=== PATIENT | female | born 1950 | race Caucasian/White ===

== ENCOUNTER 2017-07-04 12:47 | Inpatient (IN) ==
[2017-07-04] MEDS ORDERED: PIPERACILLIN/TAZOBACTAM 3,375 MG in SODIUM CHLORIDE 0.9% 100 ML IV STA (13:44)
[2017-07-04] MEDS ORDERED: ACETAMINOPHEN 325 MG TABLET PO PRN (13:45)
[2017-07-04] MEDS ORDERED: ONDANSETRON 4 MG/2 ML VIAL IV PRN (13:45)
[2017-07-04 13:49] LABS: Basophils % 0.2 % (0.0-0.8); Hematocrit 48.4 VOL% (35.7-47.0); Hemoglobin 16.4 GM/DL (12.0-16.0); Immature Granulocytes % 0.5 %; Immature Granulocytes Absolute 0.06 #; Lymphocytes # 0.4 10*3/uL (1.4-4.0); Lymphocytes % 3.6 % (21.3-54.2); Mean Corpuscular HGB Conc 33.9 GM/DL (32-36); Mean Corpuscular Hemoglobin 31 PG (27-34); Mean Platelet Volume 9.6 FL (9.6-12.0); Monocytes # 0.6 10*3/uL (0.11-0.8); Monocytes % 4.9 % (1.7-12.7); Neutrophils # 10.2 10*3/uL (1.4-7.4); Neutrophils % 90.8 % (38.7-73.9); Platelet Count 346 T/CUMM (130-400); Red Blood Count 5.32 MC/CUMM (3.8-5.5); Red Cell Distribution Width 13.2 % (9.3-17.3); White Blood Count 11.3 T/CUMM (4-12)
[2017-07-04] MEDS ORDERED: PIPERACILLIN/TAZOBACTAM 3,375 MG VIAL IV ONE (13:50)
[2017-07-04 13:58] LABS: Apearance,Urine CLEAR (Clear); Bilirubin,Urine Negative (Negative); Blood, Urine Moderate mg/dL (Negative); Glucose,Urine (UA) Negative (Negative); Hyaline Casts,Urine 1 /LPF (0-3); Ketones,Urine Negative (Negative); Mucus,Urine Occasional /LPF (Occasional); Nitrite,Urine Negative (Negative); Protein,Urine 30 MG/DL; RBC,Urine 27 /HPF (0-4); Squamous Epithelial Cell,Urine Occasional /HPF (0-10); Urine Color Amber (Yellow); Urine Specific Gravity 1.016 (1.001-1.035); Urine Urobilinogen < 2.0 EU/DL (0.2-1.0); WBC,Urine 2 /HPF (0-6)
[2017-07-04] MEDS ORDERED: DEXTROSE 5% NACL 0.45% 1,000 ML IV SCH (14:00)
[2017-07-04 14:10] LABS: Hypochromasia 1+
[2017-07-04 14:11] LABS: Bilirubin,Total 1.7 MG/DL (0.2-1.0); Calcium 8.5 MG/DL (8.5-10.1); Potassium 3.7 MMOL/L (3.5-5.1); Total Protein 6.4 G/DL (6.4-8.3)
[2017-07-04 14:27] LABS: Lactic Acid 3.7 MMOL/L (0.4-2.0)
[2017-07-04] MEDS ORDERED: SEVOFLURANE 1 UNIT/15 MINUTE INH ONE (16:36)
[2017-07-04] MEDS ORDERED: VECURONIUM 10 MG VIAL IV ONE (16:37)
[2017-07-04] MEDS ORDERED: ROCURONIUM 100 MG/10 ML VIAL IV ONE (16:37)
[2017-07-04] MEDS ORDERED: PHENYLEPHRINE 10 MG/1 ML VIAL IV ONE (16:37)
[2017-07-04] MEDS ORDERED: ONDANSETRON 4 MG/2 ML VIAL ONE (16:37)
[2017-07-04] MEDS ORDERED: SODIUM CHLORIDE 0.9% 250 ML IV ONE (16:37)
[2017-07-04] MEDS ORDERED: LACTATED RINGERS 1,000 ML IV ONE ×2 (16:37→18:53)
[2017-07-04] MEDS ORDERED: SODIUM CHLORIDE 0.9% 1,000 ML IV ONE ×2 (16:37→22:49)
[2017-07-04] MEDS ORDERED: MIDAZOLAM 2 MG/2 ML VIAL ONE (16:37)
[2017-07-04] MEDS ORDERED: SUCCINYLCHOLINE 200 MG/10 ML VIAL ONE (16:37)
[2017-07-04] MEDS ORDERED: fentaNYL 100 MCG/2 ML VIAL ONE (16:37)
[2017-07-04 17:37] LABS: ABG Base Excess -3.8 MMOL/L (-2.5-2.5); ABG HCO3 21.4 MMOL/L (20-26); ABG Oxygen Saturation 96.5 % (95-100); ABG PCO2 39.6 MM HG (35-48); ABG PO2 96.7 MM HG (80-95); ABG TCO2 22.6 MMOL/L (23-27); Allen Test Positive; Pt O2 Delivery Device Ventilator
[2017-07-04] MEDS: PIPERACILLIN/TAZOBACTAM 3,375 MG in SODIUM CHLORIDE 0.9% 100 ML IV SCH ×2 (17:38→22:29)
[2017-07-04] MEDS: LACTATED RINGERS 1,000 ML IV SCH (18:12)
[2017-07-04] MEDS ORDERED: hydrALAZINE 20 MG/1 ML VIAL IV PRN (18:17)
[2017-07-04 18:27] LABS: Lactic Acid 4.5 MMOL/L (0.4-2.0)
[2017-07-04] MEDS: HYDROmorphone 2 MG/1 ML VIAL IV PRN ×2 (18:45→22:10)
[2017-07-04] MEDS ORDERED: NOREPINEPHRINE 4 MG/4 ML VIAL IV ONE (18:52)
[2017-07-04] MEDS: PANTOPRAZOLE 40 MG VIAL IV SCH (18:59)
[2017-07-04 19:30] LABS: Hematocrit 42.7 VOL% (35.7-47.0); Hemoglobin 14.6 GM/DL (12.0-16.0)
[2017-07-04] MEDS: NOREPINEPHRINE 8 MG in SODIUM CHLORIDE 0.9% 242 ML IV SCH (19:52)
[2017-07-04] MEDS: PROPOFOL 1,000 MG/100 ML BOTTLE IV SCH (21:33)
[2017-07-04] MEDS ORDERED: ALBUMIN 25% 12.5 GM in PREMIX 1 EACH IV ONE (23:00)
[2017-07-05] MEDS: LACTATED RINGERS 1,000 ML IV SCH ×5 (03:44→20:30)
[2017-07-05 04:05] LABS: ABG Base Excess -1.1 MMOL/L (-2.5-2.5); ABG HCO3 23.5 MMOL/L (20-26); ABG Oxygen Saturation 99.4 % (95-100); ABG PH 7.437 (7.35-7.45); ABG TCO2 19.1 MMOL/L (23-27); Allen Test Positive; Pt O2 Delivery Device Ventilator
[2017-07-05 04:57] LABS: Basophils % 0.3 % (0.0-0.8); Hematocrit 42.3 VOL% (35.7-47.0); Immature Granulocytes % 0.9 %; Immature Granulocytes Absolute 0.08 #; Lymphocytes # 0.5 10*3/uL (1.4-4.0); Lymphocytes % 6.1 % (21.3-54.2); Mean Corpuscular HGB Conc 33.1 GM/DL (32-36); Mean Corpuscular Hemoglobin 31 PG (27-34); Mean Corpuscular Volume 92.8 FL (87-102); Monocytes # 0.4 10*3/uL (0.11-0.8); Monocytes % 4.6 % (1.7-12.7); Neutrophils # 7.6 10*3/uL (1.4-7.4); Neutrophils % 88.1 % (38.7-73.9); Platelet Count 235 T/CUMM (130-400); Red Blood Count 4.56 MC/CUMM (3.8-5.5); Red Cell Distribution Width 13.2 % (9.3-17.3); White Blood Count 8.6 T/CUMM (4-12)
[2017-07-05] MEDS: LEVOTHYROXINE 75 MCG TABLET PO SCH (05:10)
[2017-07-05] MEDS: PIPERACILLIN/TAZOBACTAM 3,375 MG in SODIUM CHLORIDE 0.9% 100 ML IV SCH ×3 (05:16→22:36)
[2017-07-05 05:18] LABS: Lactic Acid 2.5 MMOL/L (0.4-2.0)
[2017-07-05 05:28] LABS: Albumin 2.3 G/DL (3.4-5.0); Bilirubin,Total 2.9 MG/DL (0.2-1.0); Calcium 7.4 MG/DL (8.5-10.1); Osmolality,Calculated 287.3 MOS/KG (273-304); Potassium 3.6 MMOL/L (3.5-5.1); Total Protein 4.6 G/DL (6.4-8.3)
[2017-07-05 05:33] LABS: Band Neutrophils 14 % (0-10); Lymphocytes 6 % (20-55); Metamyelocytes 4 %; Microcytosis Slight; Myelocytes 1 %; Segmented Neutrophils 72 % (50-85); Total Cells Counted 100
[2017-07-05 05:34] LABS: Platelet Estimate Normal
[2017-07-05] MEDS: PANTOPRAZOLE 40 MG VIAL IV SCH (09:18)
[2017-07-05] MEDS: PROPOFOL 1,000 MG/100 ML BOTTLE IV SCH (10:02)
[2017-07-05] MEDS: HYDROmorphone 2 MG/1 ML VIAL IV PRN ×2 (10:29→20:45)
[2017-07-05] MEDS ORDERED: BUPIVACAINE 0.25% 50 ML VIAL ONE (13:23)
[2017-07-05] MEDS ORDERED: fentaNYL 100 MCG/2 ML VIAL ONE (15:34)
[2017-07-05] MEDS ORDERED: MIDAZOLAM 2 MG/2 ML VIAL ONE (15:34)
[2017-07-05] MEDS ORDERED: ROCURONIUM 100 MG/10 ML VIAL IV ONE ×2 (15:35→15:39)
[2017-07-05] MEDS ORDERED: ONDANSETRON 4 MG/2 ML VIAL ONE (15:36)
[2017-07-05] MEDS ORDERED: DEXAMETHASONE 10 MG/1 ML VIAL ONE (15:36)
[2017-07-05] MEDS ORDERED: PHENYLEPHRINE 10 MG/1 ML VIAL IV ONE (15:37)
[2017-07-05] MEDS ORDERED: SODIUM CHLORIDE 0.9% 250 ML IV ONE (15:37)
[2017-07-06] MEDS: LACTATED RINGERS 1,000 ML IV SCH ×4 (02:28→17:53)
[2017-07-06 03:39] LABS: ABG Base Excess 1.9 MMOL/L (-2.5-2.5); ABG HCO3 26.1 MMOL/L (20-26); ABG Oxygen Saturation 99.5 % (95-100); ABG PCO2 37.1 MM HG (35-48); ABG PH 7.449 (7.35-7.45); ABG TCO2 22.8 MMOL/L (23-27)
[2017-07-06] MEDS: PROPOFOL 1,000 MG/100 ML BOTTLE IV SCH ×3 (04:35→21:24)
[2017-07-06] MEDS: NOREPINEPHRINE 8 MG in SODIUM CHLORIDE 0.9% 242 ML IV SCH ×2 (05:42→20:04)
[2017-07-06] MEDS: LEVOTHYROXINE 75 MCG TABLET PO SCH (05:52)
[2017-07-06 06:21] LABS: Hematocrit 34.6 VOL% (35.7-47.0); Immature Granulocytes % 1.5 %; Immature Granulocytes Absolute 0.09 #; Lymphocytes # 0.4 10*3/uL (1.4-4.0); Lymphocytes % 6.2 % (21.3-54.2); Mean Corpuscular HGB Conc 33.8 GM/DL (32-36); Mean Corpuscular Hemoglobin 31 PG (27-34); Mean Platelet Volume 10.2 FL (9.6-12.0); Monocytes # 0.3 10*3/uL (0.11-0.8); Monocytes % 4.4 % (1.7-12.7); Neutrophils # 5.3 10*3/uL (1.4-7.4); Neutrophils % 87.9 % (38.7-73.9); Red Blood Count 3.76 MC/CUMM (3.8-5.5); Red Cell Distribution Width 13.5 % (9.3-17.3)
[2017-07-06] MEDS: PIPERACILLIN/TAZOBACTAM 3,375 MG in SODIUM CHLORIDE 0.9% 100 ML IV SCH ×3 (06:32→22:24)
[2017-07-06 06:45] LABS: Alanine Aminotransferase < 9 U/L (13-56); Albumin 1.7 G/DL (3.4-5.0); Alkaline Phosphatase 53 U/L (45-117); Aspartate Amino Transferase 14 U/L (0-37); Bilirubin,Indirect 0.5 MG/DL (0.0-1.0); Blood Urea Nitrogen 17 MG/DL (7-18); Calcium 7.5 MG/DL (8.5-10.1); Glucose 200 MG/DL (74-106); Osmolality,Calculated 290.1 MOS/KG (273-304); Potassium 3.5 MMOL/L (3.5-5.1); Sodium 142 MMOL/L (136-145); Total Protein 4.2 G/DL (6.4-8.3)
[2017-07-06 07:02] LABS: Hemoglobin 11.7 GM/DL (12.0-16.0); Platelet Count 165 T/CUMM (130-400)
[2017-07-06 07:52] LABS: Band Neutrophils 4 % (0-10); Lymphocytes 9 % (20-55); Microcytosis Slight; Platelet Estimate Adequate; Segmented Neutrophils 81 % (50-85); Total Cells Counted 100
[2017-07-06] MEDS: PANTOPRAZOLE 40 MG VIAL IV SCH (09:23)
[2017-07-06] MEDS: HYDROmorphone 2 MG/1 ML VIAL IV PRN ×2 (12:24→17:54)
[2017-07-07] MEDS: HYDROmorphone 2 MG/1 ML VIAL IV PRN ×2 (00:50→11:46)
[2017-07-07] MEDS: LACTATED RINGERS 1,000 ML IV SCH ×3 (02:01→18:44)
[2017-07-07 03:41] LABS: ABG Base Excess 1.2 MMOL/L (-2.5-2.5); ABG HCO3 25.5 MMOL/L (20-26); ABG PCO2 39.4 MM HG (35-48); ABG TCO2 22.8 MMOL/L (23-27)
[2017-07-07 05:42] LABS: Basophils % 0.1 % (0.0-0.8); Hematocrit 33.3 VOL% (35.7-47.0); Hemoglobin 11.2 GM/DL (12.0-16.0); Immature Granulocytes % 2.8 %; Immature Granulocytes Absolute 0.19 #; Lymphocytes # 0.5 10*3/uL (1.4-4.0); Lymphocytes % 6.6 % (21.3-54.2); Mean Corpuscular HGB Conc 33.6 GM/DL (32-36); Mean Corpuscular Hemoglobin 31 PG (27-34); Mean Corpuscular Volume 93.3 FL (87-102); Mean Platelet Volume 10.4 FL (9.6-12.0); Monocytes # 0.4 10*3/uL (0.11-0.8); Monocytes % 6.4 % (1.7-12.7); Neutrophils # 5.8 10*3/uL (1.4-7.4); Neutrophils % 84.1 % (38.7-73.9); Platelet Count 171 T/CUMM (130-400); Red Blood Count 3.57 MC/CUMM (3.8-5.5); Red Cell Distribution Width 13.6 % (9.3-17.3); White Blood Count 6.9 T/CUMM (4-12)
[2017-07-07] MEDS: LEVOTHYROXINE 75 MCG TABLET PO SCH (06:14)
[2017-07-07] MEDS: PIPERACILLIN/TAZOBACTAM 3,375 MG in SODIUM CHLORIDE 0.9% 100 ML IV SCH ×3 (06:14→22:46)
[2017-07-07 06:15] LABS: Band Neutrophils 3 % (0-10); Lymphocytes 17 % (20-55); Macrocytosis 1+; Platelet Estimate Normal; Segmented Neutrophils 77 % (50-85); Total Cells Counted 100
[2017-07-07 06:23] LABS: Alanine Aminotransferase < 6 U/L (13-56); Albumin 1.7 G/DL (3.4-5.0); Alkaline Phosphatase 56 U/L (45-117); Aspartate Amino Transferase 8 U/L (0-37); Bilirubin,Indirect 0.8 MG/DL (0.0-1.0); Blood Urea Nitrogen 21 MG/DL (7-18); Calcium 7.6 MG/DL (8.5-10.1); Glucose 164 MG/DL (74-106); Potassium 3.6 MMOL/L (3.5-5.1); Sodium 143 MMOL/L (136-145); Total Protein 4.2 G/DL (6.4-8.3)
[2017-07-07] MEDS: PANTOPRAZOLE 40 MG VIAL IV SCH (08:13)
[2017-07-07] MEDS ORDERED: SEVOFLURANE 1 UNIT/15 MINUTE INH ONE (11:18)
[2017-07-07] MEDS ORDERED: fentaNYL 100 MCG/2 ML VIAL ONE (11:19)
[2017-07-07] MEDS ORDERED: MIDAZOLAM 10 MG/2 ML VIAL ONE (11:19)
[2017-07-07] MEDS ORDERED: ROCURONIUM 100 MG/10 ML VIAL IV ONE (11:19)
[2017-07-07] MEDS: PROPOFOL 1,000 MG/100 ML BOTTLE IV SCH (15:49)
[2017-07-07] MEDS: NOREPINEPHRINE 8 MG in SODIUM CHLORIDE 0.9% 242 ML IV SCH (19:08)
[2017-07-08] MEDS: PROPOFOL 1,000 MG/100 ML BOTTLE IV SCH ×3 (00:42→21:17)
[2017-07-08 04:12] LABS: ABG Base Excess 2.2 MMOL/L (-2.5-2.5); ABG HCO3 26.3 MMOL/L (20-26); ABG Oxygen Saturation 95.9 % (95-100); ABG PCO2 38.7 MM HG (35-48); ABG PH 7.439 (7.35-7.45); ABG PO2 79.1 MM HG (80-95); ABG TCO2 21.5 MMOL/L (23-27); Allen Test Positive; Pt O2 Delivery Device Ventilator
[2017-07-08] MEDS: LACTATED RINGERS 1,000 ML IV SCH ×3 (04:25→17:30)
[2017-07-08 06:02] LABS: Basophils % 0.2 % (0.0-0.8); Eosinophils % 0.1 % (0.00-10.9); Hematocrit 35.9 VOL% (35.7-47.0); Hemoglobin 11.5 GM/DL (12.0-16.0); Immature Granulocytes % 2.2 %; Lymphocytes # 0.6 10*3/uL (1.4-4.0); Lymphocytes % 5.9 % (21.3-54.2); Mean Corpuscular Hemoglobin 31 PG (27-34); Mean Corpuscular Volume 95.5 FL (87-102); Monocytes # 0.6 10*3/uL (0.11-0.8); Monocytes % 6.4 % (1.7-12.7); Neutrophils # 7.9 10*3/uL (1.4-7.4); Neutrophils % 85.2 % (38.7-73.9); Platelet Count 194 T/CUMM (130-400); Red Blood Count 3.76 MC/CUMM (3.8-5.5); Red Cell Distribution Width 13.5 % (9.3-17.3); White Blood Count 9.3 T/CUMM (4-12)
[2017-07-08 06:30] LABS: Calcium 7.6 MG/DL (8.5-10.1); Osmolality,Calculated 289.8 MOS/KG (273-304); Potassium 3.5 MMOL/L (3.5-5.1)
[2017-07-08 06:39] LABS: Albumin 1.6 G/DL (3.4-5.0); Bilirubin,Direct 0.47 MG/DL (0.0-0.20); Bilirubin,Indirect 0.3 MG/DL (0.0-1.0); Bilirubin,Total 0.8 MG/DL (0.2-1.0); Total Protein 4.3 G/DL (6.4-8.3)
[2017-07-08] MEDS: LEVOTHYROXINE 75 MCG TABLET PO SCH (06:58)
[2017-07-08] MEDS: PIPERACILLIN/TAZOBACTAM 3,375 MG in SODIUM CHLORIDE 0.9% 100 ML IV SCH ×3 (06:58→22:15)
[2017-07-08 07:45] LABS: Hypochromasia 1+; Platelet Estimate Adequate
[2017-07-08] MEDS: PANTOPRAZOLE 40 MG VIAL IV SCH (08:09)
[2017-07-08] MEDS: FUROSEMIDE 40 MG/4 ML VIAL IV SCH (08:09)
[2017-07-08] MEDS ORDERED: GLUCAGON 1 MG VIAL IM PRN (09:25)
[2017-07-08] MEDS ORDERED: DEXTROSE 50% 25 GM/50 ML VIAL IV PRN (09:25)
[2017-07-08 12:16] LABS: ABG Base Excess 3.9 MMOL/L (-2.5-2.5); ABG HCO3 27.9 MMOL/L (20-26); ABG Oxygen Saturation 95.6 % (95-100); ABG PCO2 37.6 MM HG (35-48); ABG PH 7.473 (7.35-7.45); ABG PO2 73.3 MM HG (80-95); ABG TCO2 24.2 MMOL/L (23-27); Allen Test Positive; Pt O2 Delivery Device Ventilator
[2017-07-08] MEDS: INSULIN REGULAR 100 UNIT/ML SUBCUT SCH ×3 (12:24→23:56)
[2017-07-09 03:45] LABS: ABG Base Excess 3.6 MMOL/L (-2.5-2.5); ABG HCO3 27.5 MMOL/L (20-26); ABG Oxygen Saturation 97.4 % (95-100); ABG PCO2 39.4 MM HG (35-48); ABG PH 7.462 (7.35-7.45); ABG PO2 97.7 MM HG (80-95); ABG TCO2 28.7 MMOL/L (23-27); Allen Test Positive; Pt O2 Delivery Device Ventilator
[2017-07-09] MEDS: PIPERACILLIN/TAZOBACTAM 3,375 MG in SODIUM CHLORIDE 0.9% 100 ML IV SCH ×3 (05:31→23:15)
[2017-07-09] MEDS: LACTATED RINGERS 1,000 ML IV SCH ×2 (05:34→13:07)
[2017-07-09 05:38] LABS: Basophils % 0.4 % (0.0-0.8); Eosinophils % 0.1 % (0.00-10.9); Hematocrit 33.3 VOL% (35.7-47.0); Hemoglobin 10.5 GM/DL (12.0-16.0); Immature Granulocytes % 4.5 %; Immature Granulocytes Absolute 0.48 #; Lymphocytes # 0.6 10*3/uL (1.4-4.0); Lymphocytes % 5.8 % (21.3-54.2); Mean Corpuscular HGB Conc 31.5 GM/DL (32-36); Mean Corpuscular Hemoglobin 30 PG (27-34); Mean Corpuscular Volume 96.2 FL (87-102); Mean Platelet Volume 10.1 FL (9.6-12.0); Monocytes # 0.8 10*3/uL (0.11-0.8); Monocytes % 7.8 % (1.7-12.7); Neutrophils # 8.7 10*3/uL (1.4-7.4); Neutrophils % 81.4 % (38.7-73.9); Platelet Count 175 T/CUMM (130-400); Red Blood Count 3.46 MC/CUMM (3.8-5.5); Red Cell Distribution Width 13.3 % (9.3-17.3); White Blood Count 10.6 T/CUMM (4-12)
[2017-07-09] MEDS: LEVOTHYROXINE 75 MCG TABLET PO SCH (05:42)
[2017-07-09 06:06] LABS: Calcium 7.1 MG/DL (8.5-10.1); Osmolality,Calculated 295.3 MOS/KG (273-304); Potassium 2.9 MMOL/L (3.5-5.1)
[2017-07-09] MEDS: INSULIN REGULAR 100 UNIT/ML SUBCUT SCH ×3 (06:24→18:24)
[2017-07-09 06:41] LABS: Band Neutrophils 3 % (0-10); Lymphocytes 4 % (20-55); Segmented Neutrophils 87 % (50-85); Total Cells Counted 100
[2017-07-09 06:42] LABS: Hypochromasia 1+; Platelet Estimate Adequate
[2017-07-09] MEDS ORDERED: POTASSIUM CHLORIDE RIDER 20 MEQ in PREMIX 1 EACH IV PRN (06:47)
[2017-07-09] MEDS ORDERED: POTASSIUM CHLORIDE INJ 50 MEQ in SODIUM CHLORIDE 0.9% 500 ML IV ONE (08:30)
[2017-07-09] MEDS: PANTOPRAZOLE 40 MG VIAL IV SCH (08:52)
[2017-07-09] MEDS: SPIRONOLACTONE 25 MG TABLET PO SCH ×2 (08:52→22:53)
[2017-07-09] MEDS: FUROSEMIDE 40 MG/4 ML VIAL IV SCH (08:52)
[2017-07-09] MEDS: HALOPERIDOL 5 MG/ML AMP IV SCH ×2 (08:52→22:53)
[2017-07-09] MEDS: PROPOFOL 1,000 MG/100 ML BOTTLE IV SCH ×3 (09:01→23:52)
[2017-07-09] MEDS: ENOXAPARIN 40 MG/0.4 ML SYRINGE SUBCUT SCH (09:46)
[2017-07-09] MEDS: POTASSIUM CHLORIDE RIDER 10 MEQ in PREMIX 1 EACH IV PRN ×2 (20:31→23:16)
[2017-07-09] MEDS: HYDROmorphone 2 MG/1 ML VIAL IV PRN (22:55)
[2017-07-10] MEDS: INSULIN REGULAR 100 UNIT/ML SUBCUT SCH ×4 (00:32→17:37)
[2017-07-10] MEDS: PROPOFOL 1,000 MG/100 ML BOTTLE IV SCH ×3 (04:01→16:35)
[2017-07-10] MEDS: LACTATED RINGERS 1,000 ML IV SCH ×2 (04:02→08:40)
[2017-07-10 04:15] LABS: ABG Base Excess 2.3 MMOL/L (-2.5-2.5); ABG HCO3 26.3 MMOL/L (20-26); ABG Oxygen Saturation 96.2 % (95-100); ABG PCO2 32.4 MM HG (35-48); ABG PO2 77.8 MM HG (80-95); ABG TCO2 20.3 MMOL/L (23-27); Allen Test Positive; Pt O2 Delivery Device Ventilator
[2017-07-10] MEDS: PIPERACILLIN/TAZOBACTAM 3,375 MG in SODIUM CHLORIDE 0.9% 100 ML IV SCH ×3 (05:45→22:53)
[2017-07-10 05:57] LABS: Calcium 7.2 MG/DL (8.5-10.1); Osmolality,Calculated 291.6 MOS/KG (273-304)
[2017-07-10] MEDS: LEVOTHYROXINE 75 MCG TABLET PO SCH (06:11)
[2017-07-10] MEDS: HALOPERIDOL 5 MG/ML AMP IV SCH ×2 (09:48→21:18)
[2017-07-10] MEDS: FUROSEMIDE 40 MG/4 ML VIAL IV SCH (09:48)
[2017-07-10] MEDS: PANTOPRAZOLE 40 MG VIAL IV SCH (09:48)
[2017-07-10] MEDS: ENOXAPARIN 40 MG/0.4 ML SYRINGE SUBCUT SCH (09:49)
[2017-07-10] MEDS: SPIRONOLACTONE 25 MG TABLET PO SCH ×2 (09:49→21:15)
[2017-07-10] MEDS: VANCOMYCIN INJ 1,500 MG in SODIUM CHLORIDE 0.9% 500 ML IV SCH ×2 (09:53→19:58)
[2017-07-11] MEDS: INSULIN REGULAR 100 UNIT/ML SUBCUT SCH ×4 (00:14→17:36)
[2017-07-11] MEDS: PROPOFOL 1,000 MG/100 ML BOTTLE IV SCH (03:09)
[2017-07-11 03:49] LABS: ABG Base Excess 5.6 MMOL/L (-2.5-2.5); ABG PCO2 37.6 MM HG (35-48); ABG PH 7.505 (7.35-7.45); ABG PO2 89.7 MM HG (80-95); ABG TCO2 30.1 MMOL/L (23-27)
[2017-07-11 05:13] LABS: Basophils % 0.3 % (0.0-0.8); Eosinophils % 0.3 % (0.00-10.9); Hematocrit 32.8 VOL% (35.7-47.0); Hemoglobin 10.9 GM/DL (12.0-16.0); Immature Granulocytes % 8.3 %; Immature Granulocytes Absolute 0.87 #; Lymphocytes # 0.9 10*3/uL (1.4-4.0); Lymphocytes % 8.3 % (21.3-54.2); Mean Corpuscular HGB Conc 33.2 GM/DL (32-36); Mean Corpuscular Hemoglobin 31 PG (27-34); Mean Platelet Volume 10.3 FL (9.6-12.0); Monocytes # 0.7 10*3/uL (0.11-0.8); Monocytes % 6.7 % (1.7-12.7); Neutrophils % 76.1 % (38.7-73.9); Platelet Count 221 T/CUMM (130-400); Red Blood Count 3.49 MC/CUMM (3.8-5.5); Red Cell Distribution Width 13.4 % (9.3-17.3); White Blood Count 10.5 T/CUMM (4-12)
[2017-07-11] MEDS: LACTATED RINGERS 1,000 ML IV SCH ×2 (05:24→17:55)
[2017-07-11] MEDS: LEVOTHYROXINE 75 MCG TABLET PO SCH (05:24)
[2017-07-11] MEDS: PIPERACILLIN/TAZOBACTAM 3,375 MG in SODIUM CHLORIDE 0.9% 100 ML IV SCH ×3 (05:25→21:34)
[2017-07-11 05:34] LABS: Calcium 6.9 MG/DL (8.5-10.1); Osmolality,Calculated 295.6 MOS/KG (273-304)
[2017-07-11 05:38] LABS: Prealbumin 13.3 MG/DL (20-40)
[2017-07-11 05:44] LABS: Band Neutrophils 1 % (0-10); Eosinophils 1 % (0-10); Lymphocytes 9 % (20-55); Myelocytes 1 %; Segmented Neutrophils 82 % (50-85); Total Cells Counted 100
[2017-07-11 05:46] LABS: Platelet Estimate Adequate
[2017-07-11 05:48] LABS: Atypical Lymphocytes Few
[2017-07-11 09:09] LABS: ABG Base Excess 4.8 MMOL/L (-2.5-2.5); ABG HCO3 28.7 MMOL/L (20-26); ABG Oxygen Saturation 97.1 % (95-100); ABG PCO2 37.7 MM HG (35-48); ABG PH 7.485 (7.35-7.45); ABG TCO2 25.3 MMOL/L (23-27)
[2017-07-11] MEDS: VANCOMYCIN INJ 1,500 MG in SODIUM CHLORIDE 0.9% 500 ML IV SCH (09:11)
[2017-07-11] MEDS: SPIRONOLACTONE 25 MG TABLET PO SCH ×2 (09:12→21:11)
[2017-07-11] MEDS: POTASSIUM CHLORIDE 20 MEQ/15 ML UDCUP PER TUBE PRN ×4 (09:12→16:17)
[2017-07-11] MEDS: FUROSEMIDE 40 MG/4 ML VIAL IV SCH (09:12)
[2017-07-11] MEDS: ENOXAPARIN 40 MG/0.4 ML SYRINGE SUBCUT SCH (09:13)
[2017-07-11] MEDS: HALOPERIDOL 5 MG/ML AMP IV SCH ×2 (09:13→21:23)
[2017-07-11] MEDS: PANTOPRAZOLE 40 MG VIAL IV SCH (09:13)
[2017-07-11 11:44] LABS: ABG HCO3 28.9 MMOL/L (20-26); ABG PH 7.454 (7.35-7.45); ABG PO2 96.1 MM HG (80-95); ABG TCO2 26.2 MMOL/L (23-27)
[2017-07-11] MEDS: POTASSIUM CHLORIDE 20 MEQ TABLET PO SCH (21:16)
[2017-07-12] MEDS: POTASSIUM CHLORIDE 20 MEQ TABLET PO SCH ×3 (00:58→05:42)
[2017-07-12] MEDS: INSULIN REGULAR 100 UNIT/ML SUBCUT SCH ×4 (00:58→18:12)
[2017-07-12 03:41] LABS: ABG Base Excess 4.2 MMOL/L (-2.5-2.5); ABG HCO3 27.6 MMOL/L (20-26); ABG Oxygen Saturation 97.8 % (95-100); ABG PCO2 37.2 MM HG (35-48); ABG PH 7.489 (7.35-7.45); ABG PO2 100.7 MM HG (80-95); ABG TCO2 28.8 MMOL/L (23-27); Allen Test Positive
[2017-07-12] MEDS: PIPERACILLIN/TAZOBACTAM 3,375 MG in SODIUM CHLORIDE 0.9% 100 ML IV SCH ×3 (05:35→21:10)
[2017-07-12] MEDS: LEVOTHYROXINE 75 MCG TABLET PO SCH (05:42)
[2017-07-12 06:10] LABS: Basophils % 0.2 % (0.0-0.8); Eosinophils # 0.2 10*3/uL (0.0-0.87); Eosinophils % 1.3 % (0.00-10.9); Hematocrit 36.5 VOL% (35.7-47.0); Hemoglobin 11.6 GM/DL (12.0-16.0); Immature Granulocytes % 7.1 %; Lymphocytes # 0.9 10*3/uL (1.4-4.0); Lymphocytes % 6.2 % (21.3-54.2); Mean Corpuscular HGB Conc 31.8 GM/DL (32-36); Mean Corpuscular Hemoglobin 31 PG (27-34); Mean Corpuscular Volume 96.8 FL (87-102); Mean Platelet Volume 10.5 FL (9.6-12.0); Monocytes # 0.8 10*3/uL (0.11-0.8); Monocytes % 5.6 % (1.7-12.7); Neutrophils # 11.2 10*3/uL (1.4-7.4); Neutrophils % 79.6 % (38.7-73.9); Platelet Count 240 T/CUMM (130-400); Red Blood Count 3.77 MC/CUMM (3.8-5.5); Red Cell Distribution Width 13.1 % (9.3-17.3); White Blood Count 14.1 T/CUMM (4-12)
[2017-07-12 06:33] LABS: Eosinophils 2 % (0-10); Hypochromasia 1+; Lymphocytes 9 % (20-55); Metamyelocytes 1 %; Segmented Neutrophils 80 % (50-85); Total Cells Counted 100
[2017-07-12 06:40] LABS: Calcium 7.3 MG/DL (8.5-10.1); Osmolality,Calculated 291.7 MOS/KG (273-304)
[2017-07-12] MEDS: ALBUTEROL/IPRATROPIUM 3 ML NEB RESP TX SCH ×3 (08:27→19:47)
[2017-07-12] MEDS: ENOXAPARIN 40 MG/0.4 ML SYRINGE SUBCUT SCH (08:58)
[2017-07-12] MEDS: SPIRONOLACTONE 25 MG TABLET PO SCH ×2 (08:58→21:07)
[2017-07-12] MEDS: FUROSEMIDE 40 MG/4 ML VIAL IV SCH (08:58)
[2017-07-12] MEDS: PANTOPRAZOLE 40 MG VIAL IV SCH (08:59)
[2017-07-12] MEDS: VANCOMYCIN INJ 1,500 MG in SODIUM CHLORIDE 0.9% 500 ML IV SCH (09:27)
[2017-07-12] MEDS ORDERED: PIPERACILLIN/TAZOBACTAM 3,375 MG VIAL IV ONE (14:42)
[2017-07-12] MEDS: MIRTAZAPINE 15 MG TABLET PO SCH (21:07)
[2017-07-13] MEDS: ALBUTEROL/IPRATROPIUM 3 ML NEB RESP TX SCH ×5 (00:04→20:42)
[2017-07-13] MEDS: INSULIN REGULAR 100 UNIT/ML SUBCUT SCH ×4 (02:05→18:36)
[2017-07-13] MEDS: VANCOMYCIN INJ 1,500 MG in SODIUM CHLORIDE 0.9% 500 ML IV SCH ×3 (02:45→21:50)
[2017-07-13 06:02] LABS: Basophils # 0.1 10*3/uL (0.0-0.2); Basophils % 0.3 % (0.0-0.8); Eosinophils # 0.1 10*3/uL (0.0-0.87); Eosinophils % 0.8 % (0.00-10.9); Hematocrit 32.5 VOL% (35.7-47.0); Immature Granulocytes % 8.7 %; Lymphocytes # 0.9 10*3/uL (1.4-4.0); Lymphocytes % 5.4 % (21.3-54.2); Mean Corpuscular HGB Conc 33.8 GM/DL (32-36); Mean Corpuscular Hemoglobin 32 PG (27-34); Mean Corpuscular Volume 93.1 FL (87-102); Mean Platelet Volume 10.6 FL (9.6-12.0); Monocytes # 0.9 10*3/uL (0.11-0.8); Monocytes % 5.1 % (1.7-12.7); Neutrophils # 13.7 10*3/uL (1.4-7.4); Neutrophils % 79.7 % (38.7-73.9); Platelet Count 258 T/CUMM (130-400); Red Blood Count 3.49 MC/CUMM (3.8-5.5); Red Cell Distribution Width 13.3 % (9.3-17.3); White Blood Count 17.2 T/CUMM (4-12)
[2017-07-13 06:15] LABS: Calcium 7.4 MG/DL (8.5-10.1); Osmolality,Calculated 291.7 MOS/KG (273-304); Potassium 3.2 MMOL/L (3.5-5.1)
[2017-07-13] MEDS: LEVOTHYROXINE 75 MCG TABLET PO SCH (06:28)
[2017-07-13 06:31] LABS: Band Neutrophils 1 % (0-10); Eosinophils 1 % (0-10); Hypochromasia 1+; Lymphocytes 7 % (20-55); Microcytosis Slight; Platelet Estimate Adequate; Segmented Neutrophils 89 % (50-85); Total Cells Counted 100
[2017-07-13] MEDS: PIPERACILLIN/TAZOBACTAM 3,375 MG in SODIUM CHLORIDE 0.9% 100 ML IV SCH ×2 (06:46→14:45)
[2017-07-13] MEDS ORDERED: FUROSEMIDE 40 MG/4 ML VIAL IV ONE (09:41)
[2017-07-13] MEDS: ENOXAPARIN 40 MG/0.4 ML SYRINGE SUBCUT SCH (10:08)
[2017-07-13] MEDS: PANTOPRAZOLE 40 MG TABLET PO SCH (10:08)
[2017-07-13] MEDS: SPIRONOLACTONE 25 MG TABLET PO SCH ×2 (10:08→21:42)
[2017-07-13] MEDS: FUROSEMIDE 40 MG/4 ML VIAL IV SCH ×2 (10:09→21:40)
[2017-07-13] MEDS: POTASSIUM CHLORIDE RIDER 10 MEQ in PREMIX 1 EACH IV PRN ×4 (11:10→17:30)
[2017-07-13] MEDS: MIRTAZAPINE 15 MG TABLET PO SCH (21:41)
[2017-07-13] MEDS: ZINC OXIDE PASTE 113 GM TUBE TOP SCH (21:41)
[2017-07-14] MEDS: ALBUTEROL/IPRATROPIUM 3 ML NEB RESP TX SCH ×4 (00:46→19:57)
[2017-07-14] MEDS: INSULIN REGULAR 100 UNIT/ML SUBCUT SCH ×4 (02:13→17:49)
[2017-07-14] MEDS: PIPERACILLIN/TAZOBACTAM 3,375 MG in SODIUM CHLORIDE 0.9% 100 ML IV SCH ×3 (02:20→17:48)
[2017-07-14] MEDS: POTASSIUM CHLORIDE RIDER 10 MEQ in PREMIX 1 EACH IV PRN (03:00)
[2017-07-14 05:25] LABS: Basophils # 0.1 10*3/uL (0.0-0.2); Basophils % 0.5 % (0.0-0.8); Eosinophils # 0.2 10*3/uL (0.0-0.87); Eosinophils % 1.4 % (0.00-10.9); Hematocrit 34.8 VOL% (35.7-47.0); Hemoglobin 11.4 GM/DL (12.0-16.0); Immature Granulocytes % 7.8 %; Immature Granulocytes Absolute 1.23 #; Lymphocytes # 0.9 10*3/uL (1.4-4.0); Lymphocytes % 5.7 % (21.3-54.2); Mean Corpuscular HGB Conc 32.8 GM/DL (32-36); Mean Corpuscular Hemoglobin 31 PG (27-34); Mean Corpuscular Volume 93.8 FL (87-102); Mean Platelet Volume 10.6 FL (9.6-12.0); Monocytes % 6.5 % (1.7-12.7); Neutrophils # 12.3 10*3/uL (1.4-7.4); Neutrophils % 78.1 % (38.7-73.9); Platelet Count 265 T/CUMM (130-400); Red Blood Count 3.71 MC/CUMM (3.8-5.5); Red Cell Distribution Width 13.6 % (9.3-17.3); White Blood Count 15.7 T/CUMM (4-12)
[2017-07-14 05:55] LABS: Hypochromasia Slight; Lymphocytes 9 % (20-55); Segmented Neutrophils 82 % (50-85); Total Cells Counted 100
[2017-07-14 05:56] LABS: Microcytosis Slight
[2017-07-14 05:58] LABS: Calcium 7.8 MG/DL (8.5-10.1); Osmolality,Calculated 294.6 MOS/KG (273-304); Potassium 3.7 MMOL/L (3.5-5.1)
[2017-07-14] MEDS: LEVOTHYROXINE 75 MCG TABLET PO SCH (06:33)
[2017-07-14] MEDS: ENOXAPARIN 40 MG/0.4 ML SYRINGE SUBCUT SCH (09:24)
[2017-07-14] MEDS: FUROSEMIDE 40 MG/4 ML VIAL IV SCH ×2 (09:24→21:00)
[2017-07-14] MEDS: SPIRONOLACTONE 25 MG TABLET PO SCH ×2 (09:24→21:00)
[2017-07-14] MEDS: PANTOPRAZOLE 40 MG TABLET PO SCH (09:24)
[2017-07-14] MEDS: ZINC OXIDE PASTE 113 GM TUBE TOP SCH ×2 (09:25→21:02)
[2017-07-14] MEDS: VANCOMYCIN INJ 1,500 MG in SODIUM CHLORIDE 0.9% 500 ML IV SCH (14:29)
[2017-07-14] MEDS: MIRTAZAPINE 15 MG TABLET PO SCH (21:00)
[2017-07-15] MEDS: INSULIN REGULAR 100 UNIT/ML SUBCUT SCH ×3 (00:50→12:06)
[2017-07-15] MEDS: ALBUTEROL/IPRATROPIUM 3 ML NEB RESP TX SCH ×3 (01:02→13:45)
[2017-07-15] MEDS: PIPERACILLIN/TAZOBACTAM 3,375 MG in SODIUM CHLORIDE 0.9% 100 ML IV SCH ×2 (02:35→10:12)
[2017-07-15 05:41] LABS: Potassium 3.6 MMOL/L (3.5-5.1)
[2017-07-15] MEDS: LEVOTHYROXINE 75 MCG TABLET PO SCH (06:42)
[2017-07-15] MEDS: SPIRONOLACTONE 25 MG TABLET PO SCH (10:09)
[2017-07-15] MEDS: PANTOPRAZOLE 40 MG TABLET PO SCH (10:09)
[2017-07-15] MEDS: FUROSEMIDE 40 MG/4 ML VIAL IV SCH (10:10)
[2017-07-15] MEDS: ENOXAPARIN 40 MG/0.4 ML SYRINGE SUBCUT SCH (10:12)
[2017-07-15] MEDS: ZINC OXIDE PASTE 113 GM TUBE TOP SCH (10:13)
[2017-07-15] MEDS ORDERED: VANCOMYCIN INJ 1,500 MG in SODIUM CHLORIDE 0.9% 500 ML IV SCH (14:00)
[2017-07-15 14:08] VITALS: BP 132/60
== END 2017-07-15 14:30 | DRG 329 ==
LOC: EDBD → EDUNIT# → N.ED 12:47 → N.ICU 14:00 → N.3E 07-12 17:22
PROVIDERS: ADMIT Surgery; ATTEND Surgery

== ENCOUNTER 2018-02-21 18:44 | Inpatient (IN) ==
[2018-02-21] MEDS ORDERED: POTASSIUM CHLORIDE 20 MEQ TABLET PO ONE (21:15)
[2018-02-21] MEDS ORDERED: PROMETHAZINE 25 MG/1 ML VIAL IM PRN (21:15)
[2018-02-21] MEDS ORDERED: ONDANSETRON 4 MG/2 ML VIAL IV PRN (21:15)
[2018-02-21] MEDS ORDERED: MORPHINE 4 MG/1 ML VIAL IV PRN (21:15)
[2018-02-21] MEDS ORDERED: ALBUTEROL 2.5 MG/3 ML NEB RESP TX PRN (21:15)
[2018-02-21] MEDS ORDERED: PHENYLEPHRINE DRIP 40 MG/250 ML PREMIX IV PRN (21:26)
[2018-02-21] MEDS ORDERED: hydrALAZINE 20 MG/1 ML VIAL IV PRN (21:26)
[2018-02-21] MEDS: SODIUM CHLOR 0.9% KCL 20 MEQ 20 MEQ/1,000 ML BAG IV SCH (21:43)
[2018-02-21] MEDS: PIPERACILLIN/TAZOBACTAM 3,375 MG in SODIUM CHLORIDE 0.9% 100 ML IV SCH (21:54)
[2018-02-21 21:58] LABS: ABG Base Excess 12.4 MMOL/L (-2.5-2.5); ABG HCO3 36.3 MMOL/L (20-26); ABG Oxygen Saturation 98.5 % (95-100); ABG PCO2 43.4 MM HG (35-48); ABG PH 7.536 (7.35-7.45); ABG TCO2 31.5 MMOL/L (23-27)
[2018-02-21 22:38] LABS: Apearance,Urine CLEAR (Clear); Bacteria,Urine Occasional /HPF (Few); Bilirubin,Urine Negative (Negative); Blood, Urine Small mg/dL (Negative); Glucose,Urine (UA) Negative (Negative); Hyaline Casts,Urine 1 /LPF (0-3); Ketones,Urine Negative (Negative); Mucus,Urine Occasional /LPF (Occasional); Nitrite,Urine Negative (Negative); Protein,Urine Negative; RBC,Urine 4 /HPF (0-4); Squamous Epithelial Cell,Urine Occasional /HPF (0-10); Urine Color Yellow (Yellow); Urine Specific Gravity 1.008 (1.001-1.035); Urine Urobilinogen < 2.0 EU/DL (0.2-1.0); WBC,Urine <1 /HPF (0-6)
[2018-02-21] MEDS: AZITHROMYCIN INJ 500 MG in SODIUM CHLORIDE 0.9% 250 ML IV SCH (22:43)
[2018-02-21 23:10] LABS: Lactic Acid 3.1 MMOL/L (0.4-2.0)
[2018-02-21 23:12] LABS: Basophils % 0.2 % (0.0-0.8); Mean Corpuscular Hemoglobin 31 PG (27-34); Red Cell Distribution Width 12.4 % (9.3-17.3)
[2018-02-21] MEDS: ALBUTEROL/IPRATROPIUM 3 ML NEB RESP TX SCH (23:35)
[2018-02-21 23:37] LABS: Basophils # 0.1 10*3/uL (0.0-0.2); Hematocrit 35.1 VOL% (35.7-47.0); Immature Granulocytes % 2.7 %; Immature Granulocytes Absolute 1.31 #; Lymphocytes # 0.5 10*3/uL (1.4-4.0); Mean Corpuscular HGB Conc 38.7 GM/DL (32-36); Mean Corpuscular Volume 78.9 FL (87-102); Mean Platelet Volume 8.7 FL (9.6-12.0); Monocytes # 1.3 10*3/uL (0.11-0.8); Monocytes % 2.6 % (1.7-12.7); Neutrophils % 93.5 % (38.7-73.9); Platelet Count 370 T/CUMM (130-400); Red Blood Count 4.45 MC/CUMM (3.8-5.5)
[2018-02-21 23:41] LABS: Hemoglobin 12.9 GM/DL (12.0-16.0)
[2018-02-21 23:43] LABS: White Blood Count 48.1 T/CUMM (4-12)
[2018-02-22 00:20] LABS: Blood Urea Nitrogen 29 MG/DL (7-18); Calcium 7.9 MG/DL (8.5-10.1)
[2018-02-22 00:21] LABS: Glucose 343 MG/DL (74-106)
[2018-02-22 00:22] LABS: Osmolality,Calculated 246.3 MOS/KG (273-304); Sodium 112 MMOL/L (136-145)
[2018-02-22 00:23] LABS: Bilirubin,Total 1.93 MG/DL (0.2-1.0); Potassium 2.3 MMOL/L (3.5-5.1); Total Protein 5.8 G/DL (6.4-8.3)
[2018-02-22 00:24] LABS: Albumin 2.6 G/DL (3.4-5.0); Osmolality,Calculated 245.3 MOS/KG (273-304)
[2018-02-22 00:25] LABS: Potassium 2.4 MMOL/L (3.5-5.1)
[2018-02-22] MEDS ORDERED: SODIUM CHLORIDE 0.9% 1,000 ML IV ONE (00:31)
[2018-02-22] MEDS ORDERED: VANCOMYCIN INJ 1,000 MG in SODIUM CHLORIDE 0.9% 250 ML IV SCH (01:00)
[2018-02-22] MEDS ORDERED: TOLVAPTAN 15 MG TABLET PO ONE ×2 (01:21→21:50)
[2018-02-22] MEDS ORDERED: SODIUM CHLORIDE 3% INJ 500 ML IV SCH (02:30)
[2018-02-22 03:22] LABS: Basophils # 0.1 10*3/uL (0.0-0.2); Basophils % 0.2 % (0.0-0.8); Eosinophils % 0.1 % (0.00-10.9); Hemoglobin 11.9 GM/DL (12.0-16.0); Immature Granulocytes % 1.8 %; Immature Granulocytes Absolute 0.64 #; Lymphocytes # 0.4 10*3/uL (1.4-4.0); Mean Corpuscular HGB Conc 39.5 GM/DL (32-36); Mean Corpuscular Hemoglobin 31 PG (27-34); Mean Corpuscular Volume 79.4 FL (87-102); Mean Platelet Volume 10.2 FL (9.6-12.0); Monocytes # 0.9 10*3/uL (0.11-0.8); Monocytes % 2.4 % (1.7-12.7); NRBC # 0.04 10*3/uL; Neutrophils # 33.7 10*3/uL (1.4-7.4); Neutrophils % 94.5 % (38.7-73.9); Platelet Count 124 T/CUMM (130-400); Red Blood Count 3.79 MC/CUMM (3.8-5.5); Red Cell Distribution Width 12.6 % (9.3-17.3); White Blood Count 35.7 T/CUMM (4-12)
[2018-02-22 03:24] LABS: Free T4 (Free Thyroxine) 1.63 NG/DL (0.76-1.46); Thyroid Stimulating Hormone 1.5 uIU/ml (0.358-3.74)
[2018-02-22 03:32] LABS: Calcium 7.3 MG/DL (8.5-10.1); Osmolality,Calculated 255.5 MOS/KG (273-304)
[2018-02-22 03:35] LABS: Hematocrit 31.5 VOL% (35.7-47.0)
[2018-02-22 03:56] LABS: Band Neutrophils 13 % (0-10); Platelet Estimate Normal; Segmented Neutrophils 86 % (50-85); Total Cells Counted 100
[2018-02-22] MEDS: ALBUTEROL/IPRATROPIUM 3 ML NEB RESP TX SCH ×5 (04:12→20:22)
[2018-02-22 04:28] LABS: Band Neutrophils 2 % (0-10); Lymphocytes 1 % (20-55); Myelocytes 1 %; Segmented Neutrophils 94 % (50-85)
[2018-02-22 04:29] LABS: Platelet Estimate Adequate; Total Cells Counted 100
[2018-02-22] MEDS: PIPERACILLIN/TAZOBACTAM 3,375 MG in SODIUM CHLORIDE 0.9% 100 ML IV SCH ×3 (04:53→22:11)
[2018-02-22] MEDS ORDERED: POTASSIUM CHLORIDE INJ 40 MEQ in DEXTROSE 5% 1,000 ML IV SCH (07:00)
[2018-02-22 07:24] LABS: Potassium 2.2 MMOL/L (3.5-5.1)
[2018-02-22] MEDS: POTASSIUM CHLORIDE 20 MEQ/15 ML UDCUP PER TUBE PRN ×6 (08:28→22:11)
[2018-02-22] MEDS: ENOXAPARIN 40 MG/0.4 ML SYRINGE SUBCUT SCH (08:30)
[2018-02-22] MEDS ORDERED: PANTOPRAZOLE 40 MG VIAL IV SCH (09:00)
[2018-02-22] MEDS: SODIUM CHLOR 0.9% KCL 20 MEQ 20 MEQ/1,000 ML BAG IV SCH (09:29)
[2018-02-22] MEDS ORDERED: MAGNESIUM SULF RIDER 2 GM in PREMIX 1 EACH IV PRN (09:31)
[2018-02-22] MEDS ORDERED: MAGNESIUM SULF RIDER 4 GM in PREMIX 1 EACH IV PRN (09:31)
[2018-02-22] MEDS: ZINC OXIDE PASTE 113 GM TUBE TOP SCH ×2 (11:30→22:13)
[2018-02-22 15:40] LABS: Calcium 7.8 MG/DL (8.5-10.1); Osmolality,Calculated 265.5 MOS/KG (273-304)
[2018-02-22 16:27] LABS: Potassium 2.5 MMOL/L (3.5-5.1)
[2018-02-22] MEDS: VANCOMYCIN INJ 1,000 MG in SODIUM CHLORIDE 0.9% 250 ML IV SCH (17:50)
[2018-02-22] MEDS: LACTULOSE 20 GM/30 ML UDCUP PO SCH (22:11)
[2018-02-22] MEDS: AZITHROMYCIN INJ 500 MG in SODIUM CHLORIDE 0.9% 250 ML IV SCH (22:11)
[2018-02-23] MEDS: ALBUTEROL/IPRATROPIUM 3 ML NEB RESP TX SCH ×7 (00:10→22:26)
[2018-02-23] MEDS: POTASSIUM CHLORIDE 20 MEQ/15 ML UDCUP PER TUBE PRN ×5 (01:33→22:35)
[2018-02-23] MEDS: PIPERACILLIN/TAZOBACTAM 3,375 MG in SODIUM CHLORIDE 0.9% 100 ML IV SCH ×2 (06:29→16:05)
[2018-02-23 06:53] LABS: Basophils # 0.1 10*3/uL (0.0-0.2); Basophils % 0.5 % (0.0-0.8); Eosinophils % 0.2 % (0.00-10.9); Hematocrit 32.2 VOL% (35.7-47.0); Hemoglobin 11.4 GM/DL (12.0-16.0); Immature Granulocytes % 5.1 %; Immature Granulocytes Absolute 0.96 #; Lymphocytes # 0.4 10*3/uL (1.4-4.0); Lymphocytes % 2.2 % (21.3-54.2); Mean Corpuscular HGB Conc 35.4 GM/DL (32-36); Mean Corpuscular Hemoglobin 30 PG (27-34); Mean Corpuscular Volume 83.6 FL (87-102); Mean Platelet Volume 8.8 FL (9.6-12.0); Monocytes # 0.5 10*3/uL (0.11-0.8); Monocytes % 2.7 % (1.7-12.7); Neutrophils # 16.7 10*3/uL (1.4-7.4); Neutrophils % 89.3 % (38.7-73.9); Platelet Count 338 T/CUMM (130-400); Red Blood Count 3.85 MC/CUMM (3.8-5.5); Red Cell Distribution Width 12.9 % (9.3-17.3); White Blood Count 18.7 T/CUMM (4-12)
[2018-02-23 07:19] LABS: Calcium 8.4 MG/DL (8.5-10.1); Osmolality,Calculated 269.9 MOS/KG (273-304)
[2018-02-23 07:41] LABS: Lymphocytes 4 % (20-55); Platelet Estimate Adequate; Segmented Neutrophils 96 % (50-85); Total Cells Counted 100
[2018-02-23 07:42] LABS: Hypochromasia 1+; Microcytosis Slight
[2018-02-23] MEDS ORDERED: PNEUMOCOCCAL VACCINE (13 VALENT) 0.5 ML SYRINGE IM ONE (08:51)
[2018-02-23] MEDS ORDERED: INFLUENZA VIRUS VACCINE 0.5 ML SYRINGE IM ONE (09:00)
[2018-02-23] MEDS: ZINC OXIDE PASTE 113 GM TUBE TOP SCH ×2 (09:00→22:13)
[2018-02-23] MEDS: LACTULOSE 20 GM/30 ML UDCUP PO SCH ×2 (10:23→20:39)
[2018-02-23] MEDS: ENOXAPARIN 40 MG/0.4 ML SYRINGE SUBCUT SCH (10:24)
[2018-02-23] MEDS: VANCOMYCIN INJ 1,000 MG in SODIUM CHLORIDE 0.9% 250 ML IV SCH (14:38)
[2018-02-23] MEDS ORDERED: GLUCAGON 1 MG VIAL IM PRN (16:29)
[2018-02-23] MEDS: INSULIN REGULAR 100 UNIT/ML SUBCUT SCH ×2 (18:05→21:24)
[2018-02-23] MEDS: AZITHROMYCIN INJ 500 MG in SODIUM CHLORIDE 0.9% 250 ML IV SCH (20:38)
[2018-02-23] MEDS: SODIUM CHLORIDE 1 GM TABLET PO SCH (20:39)
[2018-02-24] MEDS: PIPERACILLIN/TAZOBACTAM 3,375 MG in SODIUM CHLORIDE 0.9% 100 ML IV SCH ×3 (00:47→22:38)
[2018-02-24] MEDS: ACETAMINOPHEN 325 MG TABLET PO PRN ×2 (00:51→20:13)
[2018-02-24] MEDS: ALBUTEROL/IPRATROPIUM 3 ML NEB RESP TX SCH ×6 (03:00→22:35)
[2018-02-24] MEDS: VANCOMYCIN INJ 1,000 MG in SODIUM CHLORIDE 0.9% 250 ML IV SCH ×2 (05:22→17:53)
[2018-02-24 06:10] LABS: Calcium 8.2 MG/DL (8.5-10.1); Osmolality,Calculated 265.7 MOS/KG (273-304); Potassium 3.9 MMOL/L (3.5-5.1)
[2018-02-24] MEDS: LACTULOSE 20 GM/30 ML UDCUP PO SCH ×2 (09:07→20:13)
[2018-02-24] MEDS: ENOXAPARIN 40 MG/0.4 ML SYRINGE SUBCUT SCH (09:07)
[2018-02-24] MEDS: SODIUM CHLORIDE 1 GM TABLET PO SCH ×3 (09:07→20:13)
[2018-02-24] MEDS: INSULIN REGULAR 100 UNIT/ML SUBCUT SCH ×4 (09:08→22:38)
[2018-02-24] MEDS: ZINC OXIDE PASTE 113 GM TUBE TOP SCH ×2 (10:10→22:38)
[2018-02-24] MEDS: diphenhydrAMINE CAP 25 MG CAPSULE PO PRN (18:05)
[2018-02-24] MEDS: AZITHROMYCIN INJ 500 MG in SODIUM CHLORIDE 0.9% 250 ML IV SCH (20:12)
[2018-02-25] MEDS: ALBUTEROL/IPRATROPIUM 3 ML NEB RESP TX SCH ×6 (02:46→23:01)
[2018-02-25 04:55] LABS: Basophils # 0.2 10*3/uL (0.0-0.2); Basophils % 0.5 % (0.0-0.8); Eosinophils # 1.3 10*3/uL (0.0-0.87); Eosinophils % 4.6 % (0.00-10.9); Hematocrit 36.4 VOL% (35.7-47.0); Hemoglobin 12.2 GM/DL (12.0-16.0); Immature Granulocytes % 7.2 %; Lymphocytes # 0.5 10*3/uL (1.4-4.0); Lymphocytes % 1.7 % (21.3-54.2); Mean Corpuscular HGB Conc 33.5 GM/DL (32-36); Mean Corpuscular Hemoglobin 29 PG (27-34); Mean Corpuscular Volume 87.7 FL (87-102); Mean Platelet Volume 8.5 FL (9.6-12.0); Monocytes # 0.5 10*3/uL (0.11-0.8); Monocytes % 1.9 % (1.7-12.7); Neutrophils # 23.5 10*3/uL (1.4-7.4); Neutrophils % 84.1 % (38.7-73.9); Platelet Count 329 T/CUMM (130-400); Red Blood Count 4.15 MC/CUMM (3.8-5.5); Red Cell Distribution Width 13.7 % (9.3-17.3); White Blood Count 27.9 T/CUMM (4-12)
[2018-02-25 05:17] LABS: Calcium 7.9 MG/DL (8.5-10.1); Osmolality,Calculated 266.5 MOS/KG (273-304); Potassium 3.9 MMOL/L (3.5-5.1)
[2018-02-25 05:21] LABS: Band Neutrophils 1 % (0-10); Eosinophils 4 % (0-10); Hypochromasia 1+; Lymphocytes 3 % (20-55); Microcytosis Slight; Segmented Neutrophils 90 % (50-85); Total Cells Counted 100
[2018-02-25 05:22] LABS: Platelet Estimate Normal
[2018-02-25] MEDS: diphenhydrAMINE CAP 25 MG CAPSULE PO PRN ×2 (05:46→08:43)
[2018-02-25] MEDS: VANCOMYCIN INJ 1,000 MG in SODIUM CHLORIDE 0.9% 250 ML IV SCH (06:28)
[2018-02-25] MEDS ORDERED: methylPREDNISolone SOD SUC 125 MG/2 ML VIAL IM SCH (08:00)
[2018-02-25] MEDS: methylPREDNISolone SOD SUC 125 MG/2 ML VIAL IV SCH ×3 (08:38→20:09)
[2018-02-25] MEDS: FAMOTIDINE 20 MG/2 ML VIAL IV SCH ×3 (08:40→20:08)
[2018-02-25] MEDS ORDERED: diphenhydrAMINE CAP 25 MG CAPSULE PO PRN (08:45)
[2018-02-25] MEDS: ZINC OXIDE PASTE 113 GM TUBE TOP SCH ×2 (09:10→20:09)
[2018-02-25] MEDS: LEVOFLOXACIN INJ 500 MG in PREMIX 1 EACH IV SCH (09:48)
[2018-02-25] MEDS: SODIUM CHLORIDE 1 GM TABLET PO SCH ×3 (09:48→20:09)
[2018-02-25] MEDS: ENOXAPARIN 40 MG/0.4 ML SYRINGE SUBCUT SCH (09:48)
[2018-02-25] MEDS: LACTULOSE 20 GM/30 ML UDCUP PO SCH ×2 (09:51→20:09)
[2018-02-25] MEDS: INSULIN REGULAR 100 UNIT/ML SUBCUT SCH ×4 (11:08→20:28)
[2018-02-25] MEDS: MEROPENEM 1,000 MG in SODIUM CHLORIDE 0.9% 100 ML IV SCH ×2 (11:10→16:06)
[2018-02-25 14:28] LABS: Apearance,Urine CLEAR (Clear); Bilirubin,Urine Negative (Negative); Blood, Urine Small mg/dL (Negative); Glucose,Urine (UA) 50 mg/dL (Negative); Ketones,Urine Negative (Negative); Nitrite,Urine Negative (Negative); Protein,Urine Negative; RBC,Urine 2 /HPF (0-4); Squamous Epithelial Cell,Urine Occasional /HPF (0-10); Urine Color Yellow (Yellow); Urine Specific Gravity 1.008 (1.001-1.035); Urine Urobilinogen < 2.0 EU/DL (0.2-1.0); WBC,Urine 1 /HPF (0-6)
[2018-02-25] MEDS: ACETAMINOPHEN 325 MG TABLET PO PRN (16:05)
[2018-02-25] MEDS: PIPERACILLIN/TAZOBACTAM 3,375 MG in SODIUM CHLORIDE 0.9% 100 ML IV SCH (18:45)
[2018-02-26] MEDS: ACETAMINOPHEN 325 MG TABLET PO PRN ×2 (00:32→08:29)
[2018-02-26] MEDS: MEROPENEM 1,000 MG in SODIUM CHLORIDE 0.9% 100 ML IV SCH ×3 (01:59→17:33)
[2018-02-26] MEDS: methylPREDNISolone SOD SUC 125 MG/2 ML VIAL IV SCH ×4 (02:01→20:48)
[2018-02-26] MEDS: FAMOTIDINE 20 MG/2 ML VIAL IV SCH ×3 (02:04→20:50)
[2018-02-26] MEDS ORDERED: IBUPROFEN 800 MG TABLET PO ONE (03:02)
[2018-02-26] MEDS: ALBUTEROL/IPRATROPIUM 3 ML NEB RESP TX SCH ×6 (04:24→23:00)
[2018-02-26 05:29] LABS: Calcium 7.9 MG/DL (8.5-10.1); Osmolality,Calculated 275.5 MOS/KG (273-304); Potassium 3.6 MMOL/L (3.5-5.1)
[2018-02-26] MEDS: INSULIN REGULAR 100 UNIT/ML SUBCUT SCH ×4 (08:23→20:47)
[2018-02-26] MEDS: SODIUM CHLORIDE 1 GM TABLET PO SCH ×3 (08:26→20:48)
[2018-02-26] MEDS: LACTULOSE 20 GM/30 ML UDCUP PO SCH ×2 (08:26→20:48)
[2018-02-26] MEDS: ENOXAPARIN 40 MG/0.4 ML SYRINGE SUBCUT SCH (08:31)
[2018-02-26] MEDS: ZINC OXIDE PASTE 113 GM TUBE TOP SCH ×2 (08:43→20:48)
[2018-02-26 10:42] LABS: Basophils # 0.1 10*3/uL (0.0-0.2); Basophils % 0.3 % (0.0-0.8); Hematocrit 32.8 VOL% (35.7-47.0); Hemoglobin 10.7 GM/DL (12.0-16.0); Immature Granulocytes % 9.5 %; Immature Granulocytes Absolute 1.79 #; Lymphocytes # 0.6 10*3/uL (1.4-4.0); Lymphocytes % 3.1 % (21.3-54.2); Mean Corpuscular HGB Conc 32.6 GM/DL (32-36); Mean Corpuscular Hemoglobin 29 PG (27-34); Mean Corpuscular Volume 89.1 FL (87-102); Monocytes # 0.3 10*3/uL (0.11-0.8); Monocytes % 1.6 % (1.7-12.7); Neutrophils # 16.1 10*3/uL (1.4-7.4); Neutrophils % 85.5 % (38.7-73.9); Platelet Count 264 T/CUMM (130-400); Red Blood Count 3.68 MC/CUMM (3.8-5.5); White Blood Count 18.9 T/CUMM (4-12)
[2018-02-26 11:02] LABS: Hypochromasia 1+; Lymphocytes 7 % (20-55); Metamyelocytes 1 %; Microcytosis 1+; Myelocytes 1 %; Polychromasia Slight; Segmented Neutrophils 87 % (50-85); Total Cells Counted 100
[2018-02-26] MEDS: LEVOFLOXACIN INJ 500 MG in PREMIX 1 EACH IV SCH (12:14)
[2018-02-26] MEDS: metFORMIN 500 MG TABLET PO SCH ×2 (13:35→17:31)
[2018-02-27] MEDS: MEROPENEM 1,000 MG in SODIUM CHLORIDE 0.9% 100 ML IV SCH ×3 (02:15→17:32)
[2018-02-27] MEDS: ALBUTEROL/IPRATROPIUM 3 ML NEB RESP TX SCH ×6 (03:00→22:55)
[2018-02-27] MEDS: methylPREDNISolone SOD SUC 125 MG/2 ML VIAL IV SCH ×2 (03:28→10:31)
[2018-02-27 03:41] LABS: Basophils % 0.2 % (0.0-0.8); Eosinophils % 0.1 % (0.00-10.9); Hematocrit 31.2 VOL% (35.7-47.0); Hemoglobin 10.4 GM/DL (12.0-16.0); Immature Granulocytes % 10.5 %; Immature Granulocytes Absolute 1.75 #; Lymphocytes # 0.8 10*3/uL (1.4-4.0); Lymphocytes % 4.6 % (21.3-54.2); Mean Corpuscular HGB Conc 33.3 GM/DL (32-36); Mean Corpuscular Hemoglobin 29 PG (27-34); Mean Corpuscular Volume 88.1 FL (87-102); Mean Platelet Volume 8.9 FL (9.6-12.0); Monocytes # 0.7 10*3/uL (0.11-0.8); Monocytes % 4.3 % (1.7-12.7); Neutrophils # 13.3 10*3/uL (1.4-7.4); Neutrophils % 80.3 % (38.7-73.9); Platelet Count 229 T/CUMM (130-400); Red Blood Count 3.54 MC/CUMM (3.8-5.5); Red Cell Distribution Width 13.8 % (9.3-17.3); White Blood Count 16.6 T/CUMM (4-12)
[2018-02-27 04:02] LABS: Osmolality,Calculated 280.2 MOS/KG (273-304); Potassium 3.5 MMOL/L (3.5-5.1)
[2018-02-27 05:10] LABS: Band Neutrophils 2 % (0-10); Hypochromasia 1+; Lymphocytes 4 % (20-55); Microcytosis 1+; Platelet Estimate Adequate; Segmented Neutrophils 91 % (50-85); Total Cells Counted 100
[2018-02-27] MEDS: metFORMIN 500 MG TABLET PO SCH ×2 (10:30→17:31)
[2018-02-27] MEDS: SODIUM CHLORIDE 1 GM TABLET PO SCH ×2 (10:30→21:21)
[2018-02-27] MEDS: LACTULOSE 20 GM/30 ML UDCUP PO SCH ×2 (10:30→21:21)
[2018-02-27] MEDS: ENOXAPARIN 40 MG/0.4 ML SYRINGE SUBCUT SCH (10:31)
[2018-02-27] MEDS: INSULIN REGULAR 100 UNIT/ML SUBCUT SCH ×4 (10:31→21:22)
[2018-02-27] MEDS: FAMOTIDINE 20 MG/2 ML VIAL IV SCH (10:32)
[2018-02-27] MEDS: ZINC OXIDE PASTE 113 GM TUBE TOP SCH ×2 (10:32→21:22)
[2018-02-27] MEDS: POTASSIUM CHLORIDE 20 MEQ/15 ML UDCUP PER TUBE PRN ×2 (10:33→13:49)
[2018-02-27] MEDS: LEVOFLOXACIN INJ 500 MG in PREMIX 1 EACH IV SCH (12:07)
[2018-02-27] MEDS: GLIMEPIRIDE 2 MG TABLET PO SCH (13:34)
[2018-02-27] MEDS: FAMOTIDINE 20 MG TABLET PO SCH (21:21)
[2018-02-27] MEDS: methylPREDNISolone SOD SUC 40 MG/1 ML VIAL IV SCH (21:21)
[2018-02-28] MEDS: MEROPENEM 1,000 MG in SODIUM CHLORIDE 0.9% 100 ML IV SCH ×3 (00:05→17:05)
[2018-02-28] MEDS: ALBUTEROL/IPRATROPIUM 3 ML NEB RESP TX SCH ×5 (03:48→20:14)
[2018-02-28 04:59] LABS: Basophils # 0.1 10*3/uL (0.0-0.2); Basophils % 0.5 % (0.0-0.8); Eosinophils % 0.1 % (0.00-10.9); Hematocrit 35.2 VOL% (35.7-47.0); Hemoglobin 11.3 GM/DL (12.0-16.0); Immature Granulocytes % 12.9 %; Immature Granulocytes Absolute 1.83 #; Lymphocytes # 1.5 10*3/uL (1.4-4.0); Lymphocytes % 10.7 % (21.3-54.2); Mean Corpuscular HGB Conc 32.1 GM/DL (32-36); Mean Corpuscular Hemoglobin 29 PG (27-34); Mean Platelet Volume 9.8 FL (9.6-12.0); Monocytes # 0.9 10*3/uL (0.11-0.8); Neutrophils # 9.9 10*3/uL (1.4-7.4); Neutrophils % 69.8 % (38.7-73.9); Platelet Count 213 T/CUMM (130-400); Red Blood Count 3.91 MC/CUMM (3.8-5.5); Red Cell Distribution Width 14.3 % (9.3-17.3); White Blood Count 14.2 T/CUMM (4-12)
[2018-02-28 05:32] LABS: Atypical Lymphocytes Few; Band Neutrophils 1 % (0-10); Lymphocytes 13 % (20-55); Metamyelocytes 1 %; Segmented Neutrophils 79 % (50-85); Total Cells Counted 100
[2018-02-28 05:33] LABS: Hypochromasia 1+; Microcytosis 1+; Polychromasia Slight
[2018-02-28 05:34] LABS: Platelet Estimate Normal
[2018-02-28] MEDS: INSULIN REGULAR 100 UNIT/ML SUBCUT SCH ×4 (08:35→21:55)
[2018-02-28] MEDS: GLIMEPIRIDE 2 MG TABLET PO SCH (08:37)
[2018-02-28] MEDS: FAMOTIDINE 20 MG TABLET PO SCH ×2 (08:38→20:52)
[2018-02-28] MEDS: metFORMIN 500 MG TABLET PO SCH ×2 (08:38→17:06)
[2018-02-28] MEDS: SODIUM CHLORIDE 1 GM TABLET PO SCH ×2 (08:38→20:52)
[2018-02-28] MEDS: methylPREDNISolone SOD SUC 40 MG/1 ML VIAL IV SCH (08:40)
[2018-02-28] MEDS: LACTULOSE 20 GM/30 ML UDCUP PO SCH ×2 (08:43→20:50)
[2018-02-28] MEDS: ENOXAPARIN 40 MG/0.4 ML SYRINGE SUBCUT SCH (08:45)
[2018-02-28] MEDS: LEVOFLOXACIN INJ 500 MG in PREMIX 1 EACH IV SCH (09:27)
[2018-02-28] MEDS: ZINC OXIDE PASTE 113 GM TUBE TOP SCH ×2 (09:29→20:52)
[2018-02-28] MEDS: DEXTROSE 50% 25 GM/50 ML VIAL IV PRN (21:51)
[2018-03-01] MEDS: ALBUTEROL/IPRATROPIUM 3 ML NEB RESP TX SCH ×7 (00:39→23:43)
[2018-03-01] MEDS: MEROPENEM 1,000 MG in SODIUM CHLORIDE 0.9% 100 ML IV SCH ×2 (00:43→08:42)
[2018-03-01] MEDS: DEXTROSE 50% 25 GM/50 ML VIAL IV PRN ×2 (02:21→05:50)
[2018-03-01 07:41] LABS: Calcium 8.7 MG/DL (8.5-10.1); Osmolality,Calculated 272.8 MOS/KG (273-304); Potassium 3.7 MMOL/L (3.5-5.1)
[2018-03-01] MEDS: ENOXAPARIN 40 MG/0.4 ML SYRINGE SUBCUT SCH (08:41)
[2018-03-01] MEDS: FAMOTIDINE 20 MG TABLET PO SCH ×2 (08:41→20:27)
[2018-03-01] MEDS: predniSONE 20 MG TABLET PO SCH (08:41)
[2018-03-01] MEDS: LACTULOSE 20 GM/30 ML UDCUP PO SCH (08:41)
[2018-03-01] MEDS: SODIUM CHLORIDE 1 GM TABLET PO SCH ×2 (08:42→20:27)
[2018-03-01] MEDS: INSULIN REGULAR 100 UNIT/ML SUBCUT SCH ×4 (09:43→20:29)
[2018-03-01] MEDS ORDERED: FUROSEMIDE 20 MG/2 ML VIAL IM ONE (10:53)
[2018-03-01] MEDS: LEVOFLOXACIN INJ 500 MG in PREMIX 1 EACH IV SCH (11:43)
[2018-03-01] MEDS: ZINC OXIDE PASTE 113 GM TUBE TOP SCH ×2 (11:49→22:14)
[2018-03-01] MEDS ORDERED: FUROSEMIDE 20 MG/2 ML VIAL IV ONE (12:02)
[2018-03-01] MEDS: metFORMIN 500 MG TABLET PO SCH ×2 (14:34→17:22)
[2018-03-02] MEDS: ALBUTEROL/IPRATROPIUM 3 ML NEB RESP TX SCH ×4 (03:16→16:12)
[2018-03-02] MEDS: INSULIN REGULAR 100 UNIT/ML SUBCUT SCH ×3 (07:59→16:56)
[2018-03-02] MEDS: ENOXAPARIN 40 MG/0.4 ML SYRINGE SUBCUT SCH (08:27)
[2018-03-02] MEDS: metFORMIN 500 MG TABLET PO SCH ×2 (08:27→16:56)
[2018-03-02] MEDS: SODIUM CHLORIDE 1 GM TABLET PO SCH (08:27)
[2018-03-02] MEDS: ZINC OXIDE PASTE 113 GM TUBE TOP SCH (08:27)
[2018-03-02] MEDS: FAMOTIDINE 20 MG TABLET PO SCH (08:27)
[2018-03-02 08:28] LABS: Basophils # 0.1 10*3/uL (0.0-0.2); Basophils % 0.7 % (0.0-0.8); Eosinophils % 0.1 % (0.00-10.9); Hematocrit 39.5 VOL% (35.7-47.0); Hemoglobin 13.4 GM/DL (12.0-16.0); Immature Granulocytes % 8.2 %; Immature Granulocytes Absolute 1.35 #; Lymphocytes % 18.2 % (21.3-54.2); Mean Corpuscular HGB Conc 33.9 GM/DL (32-36); Mean Corpuscular Hemoglobin 31 PG (27-34); Mean Platelet Volume 8.7 FL (9.6-12.0); Monocytes # 0.8 10*3/uL (0.11-0.8); Monocytes % 4.8 % (1.7-12.7); Neutrophils # 11.2 10*3/uL (1.4-7.4); Platelet Count 178 T/CUMM (130-400); Red Blood Count 4.34 MC/CUMM (3.8-5.5); Red Cell Distribution Width 14.7 % (9.3-17.3); White Blood Count 16.5 T/CUMM (4-12)
[2018-03-02] MEDS: predniSONE 20 MG TABLET PO SCH (08:28)
[2018-03-02 08:49] LABS: Hypochromasia 1+; Lymphocytes 21 % (20-55); Microcytosis Slight; Platelet Estimate Normal; Segmented Neutrophils 77 % (50-85); Total Cells Counted 100
[2018-03-02 16:28] VITALS: BP 122/64
== END 2018-03-02 18:30 | DRG 871 ==
LOC: SUATTDRO 20:14 → N.ICU 20:14 → N.5E 02-22 13:37
PROVIDERS: ADMIT Internal Medicine; ATTEND Internal Medicine

== ENCOUNTER 2019-06-12 16:15 | Inpatient (IN) ==
[2019-06-12] MEDS ORDERED: VANCOMYCIN INJ 1,000 MG in SODIUM CHLORIDE 0.9% 250 ML IV STA (16:43)
[2019-06-12 17:20] LABS: Basophils # 0.1 10*3/uL (0.0-0.2); Basophils % 0.3 % (0.0-0.8); Eosinophils % 0.3 % (0.00-10.9); Hematocrit 38.4 VOL% (35.7-47.0); Hemoglobin 12.5 GM/DL (12.0-16.0); Immature Granulocytes % 2.3 %; Immature Granulocytes Absolute 0.37 #; Lymphocytes # 0.8 10*3/uL (1.4-4.0); Lymphocytes % 4.7 % (21.3-54.2); Mean Corpuscular HGB Conc 32.6 GM/DL (32-36); Mean Corpuscular Volume 89.9 FL (87-102); Mean Platelet Volume 9.2 FL (9.6-12.0); Monocytes % 4.1 % (1.7-12.7); Neutrophils % 88.3 % (38.7-73.9); Platelet Count 381 T/CUMM (130-400); Red Blood Count 4.27 MC/CUMM (3.8-5.5); Red Cell Distribution Width 14.5 % (9.3-17.3); White Blood Count 15.9 T/CUMM (4-12)
[2019-06-12 17:38] LABS: Osmolality,Calculated 265.5 MOS/KG (273-304)
[2019-06-12] MEDS ORDERED: DEXTROSE 50% 25 GM/50 ML SYRINGE IV ONE (17:41)
[2019-06-12] MEDS ORDERED: DEXTROSE 50% 25 GM/50 ML VIAL IV STA (17:42)
[2019-06-12] MEDS ORDERED: SODIUM CHLORIDE 0.9% 2,150 ML IV ONE (17:51)
[2019-06-12] MEDS ORDERED: VANCOMYCIN 1,000 MG VIAL ONE (18:00)
[2019-06-12 18:20] LABS: Band Neutrophils 3 % (0-10); Lymphocytes 5 % (20-55); Platelet Estimate Normal; Segmented Neutrophils 89 % (50-85); Total Cells Counted 100
[2019-06-12] MEDS ORDERED: diphenhydrAMINE 50 MG/1 ML VIAL IV ONE (18:25)
[2019-06-12] MEDS ORDERED: RANITIDINE 150 MG TABLET PO ONE (18:27)
[2019-06-12 18:35] LABS: Apearance,Urine CLEAR (Clear); Bilirubin,Urine Negative (Negative); Blood, Urine Small mg/dL (Negative); Glucose,Urine (UA) 50 mg/dL (Negative); Ketones,Urine Negative (Negative); Mucus,Urine Occasional /LPF (Occasional); Nitrite,Urine Negative (Negative); Protein,Urine Negative; RBC,Urine 4 /HPF (0-4); Squamous Epithelial Cell,Urine Occasional /HPF (0-10); Urine Color Yellow (Yellow); Urine Specific Gravity 1.006 (1.001-1.035); Urine Urobilinogen < 2.0 EU/DL (0.2-1.0); WBC,Urine 16 /HPF (0-6)
[2019-06-12] MEDS ORDERED: ONDANSETRON 4 MG/2 ML VIAL IV PRN (18:41)
[2019-06-12] MEDS ORDERED: VANCOMYCIN INJ 1,000 MG in SODIUM CHLORIDE 0.9% 250 ML IV SCH (19:00)
[2019-06-12 19:17] LABS: Albumin 2.2 G/DL (3.4-5.0); Bilirubin,Total 0.6 MG/DL (0.2-1.0); Calcium 8.9 MG/DL (8.5-10.1); Osmolality,Calculated 267.5 MOS/KG (273-304); Total Protein 6.7 G/DL (6.4-8.3)
[2019-06-12] MEDS ORDERED: BUPIVACAINE 0.25% /EPI 10 ML VIAL ONE (20:07)
[2019-06-12] MEDS ORDERED: LIDOCAINE 1%/EPI INJ 20 ML VIAL ONE (20:08)
[2019-06-12] MEDS ORDERED: SEVOFLURANE 1 UNIT/15 MINUTE INH ONE (21:16)
[2019-06-12] MEDS ORDERED: LABETALOL 20 MG/4 ML SYRINGE IV ONE (21:16)
[2019-06-12] MEDS ORDERED: propofoL 200 MG/20 ML VIAL IV ONE (21:16)
[2019-06-12] MEDS ORDERED: LIDOCAINE 2% 5 ML VIAL ONE (21:16)
[2019-06-12] MEDS ORDERED: DEXTROSE 50% 25 GM/50 ML VIAL IV ONE (21:16)
[2019-06-12] MEDS ORDERED: SUCCINYLCHOLINE 200 MG/10 ML VIAL ONE (21:17)
[2019-06-12] MEDS ORDERED: ONDANSETRON 4 MG/2 ML VIAL ONE (21:17)
[2019-06-12] MEDS ORDERED: fentaNYL 100 MCG/2 ML VIAL ONE (21:17)
[2019-06-12] MEDS ORDERED: METOCLOPRAMIDE 10 MG/2 ML VIAL ONE (21:17)
[2019-06-12] MEDS: DOCUSATE SODIUM 100 MG CAPSULE PO SCH (22:58)
[2019-06-13] MEDS: SODIUM CHLORIDE 0.9% 1,000 ML IV SCH ×3 (02:07→21:40)
[2019-06-13] MEDS ORDERED: GLUCAGON 1 MG VIAL IM PRN (07:24)
[2019-06-13] MEDS ORDERED: DEXTROSE 50% 25 GM/50 ML VIAL IV PRN (07:24)
[2019-06-13 07:39] LABS: Basophils # 0.1 10*3/uL (0.0-0.2); Basophils % 0.3 % (0.0-0.8); Eosinophils # 0.1 10*3/uL (0.0-0.87); Eosinophils % 0.6 % (0.00-10.9); Hematocrit 37.4 VOL% (35.7-47.0); Hemoglobin 12.4 GM/DL (12.0-16.0); Immature Granulocytes % 2.5 %; Immature Granulocytes Absolute 0.44 #; Lymphocytes # 0.3 10*3/uL (1.4-4.0); Lymphocytes % 1.4 % (21.3-54.2); Mean Corpuscular HGB Conc 33.2 GM/DL (32-36); Mean Corpuscular Volume 88.6 FL (87-102); Mean Platelet Volume 9.2 FL (9.6-12.0); Monocytes % 0.9 % (1.7-12.7); Neutrophils % 94.3 % (38.7-73.9); Platelet Count 331 T/CUMM (130-400); Red Blood Count 4.22 MC/CUMM (3.8-5.5); Red Cell Distribution Width 14.6 % (9.3-17.3); White Blood Count 17.6 T/CUMM (4-12)
[2019-06-13 07:57] LABS: Bilirubin,Total 1.1 MG/DL (0.2-1.0); Calcium 8.2 MG/DL (8.5-10.1); Osmolality,Calculated 270.1 MOS/KG (273-304)
[2019-06-13 07:58] LABS: Band Neutrophils 8 % (0-10); Lymphocytes 1 % (20-55); Platelet Estimate Adequate; Segmented Neutrophils 90 % (50-85); Total Cells Counted 100
[2019-06-13] MEDS: VANCOMYCIN INJ 1,250 MG in SODIUM CHLORIDE 0.9% 250 ML IV SCH (09:22)
[2019-06-13] MEDS: PANTOPRAZOLE 40 MG TABLET PO SCH (09:24)
[2019-06-13] MEDS: DOCUSATE SODIUM 100 MG CAPSULE PO SCH ×2 (09:24→20:18)
[2019-06-13] MEDS: AMPICILLIN/SULBACTAM 3,000 MG in SODIUM CHLORIDE 0.9% 100 ML IV SCH ×2 (13:44→19:02)
[2019-06-14] MEDS: AMPICILLIN/SULBACTAM 3,000 MG in SODIUM CHLORIDE 0.9% 100 ML IV SCH ×4 (00:55→18:27)
[2019-06-14] MEDS: DOCUSATE SODIUM 100 MG CAPSULE PO SCH ×2 (08:54→21:18)
[2019-06-14] MEDS: PANTOPRAZOLE 40 MG TABLET PO SCH (08:54)
[2019-06-14] MEDS: SODIUM HYPOCHLORITE 0.25% IRRIG 473 ML BOTTLE TOP SCH (08:55)
[2019-06-14] MEDS: CHLORHEXIDINE 4% SOLN 118 ML BOTTLE TOP SCH (08:56)
[2019-06-14] MEDS ORDERED: SODIUM HYPOCHLORITE 0.25% IRRIG 473 ML BOTTLE TOP SCH (09:00)
[2019-06-14] MEDS: VANCOMYCIN INJ 1,250 MG in SODIUM CHLORIDE 0.9% 250 ML IV SCH (09:36)
[2019-06-14] MEDS: SODIUM CHLORIDE 0.9% 1,000 ML IV SCH (18:24)
[2019-06-15] MEDS: AMPICILLIN/SULBACTAM 3,000 MG in SODIUM CHLORIDE 0.9% 100 ML IV SCH ×4 (00:47→18:09)
[2019-06-15 04:41] LABS: Basophils # 0.1 10*3/uL (0.0-0.2); Basophils % 0.6 % (0.0-0.8); Eosinophils # 0.4 10*3/uL (0.0-0.87); Eosinophils % 3.5 % (0.00-10.9); Hematocrit 36.8 VOL% (35.7-47.0); Hemoglobin 11.9 GM/DL (12.0-16.0); Immature Granulocytes % 10.5 %; Immature Granulocytes Absolute 1.08 #; Lymphocytes # 0.6 10*3/uL (1.4-4.0); Lymphocytes % 5.7 % (21.3-54.2); Mean Corpuscular HGB Conc 32.3 GM/DL (32-36); Mean Platelet Volume 9.2 FL (9.6-12.0); Monocytes % 3.8 % (1.7-12.7); Neutrophils % 75.9 % (38.7-73.9); Platelet Count 303 T/CUMM (130-400); Red Blood Count 4.09 MC/CUMM (3.8-5.5); Red Cell Distribution Width 14.6 % (9.3-17.3); White Blood Count 10.3 T/CUMM (4-12)
[2019-06-15 05:10] LABS: Calcium 8.2 MG/DL (8.5-10.1)
[2019-06-15 05:13] LABS: Band Neutrophils 5 % (0-10); Eosinophils 5 % (0-10); Lymphocytes 5 % (20-55); Platelet Estimate Normal; Segmented Neutrophils 83 % (50-85); Total Cells Counted 100
[2019-06-15 05:14] LABS: Anisocytosis Slight; Macrocytosis Slight
[2019-06-15] MEDS: DOCUSATE SODIUM 100 MG CAPSULE PO SCH ×2 (08:22→20:39)
[2019-06-15] MEDS: SODIUM CHLORIDE 0.9% 1,000 ML IV SCH ×2 (08:22→13:39)
[2019-06-15] MEDS: PANTOPRAZOLE 40 MG TABLET PO SCH (08:22)
[2019-06-15] MEDS: SODIUM HYPOCHLORITE 0.25% IRRIG 473 ML BOTTLE TOP SCH (08:23)
[2019-06-15] MEDS: CHLORHEXIDINE 4% SOLN 118 ML BOTTLE TOP SCH (08:23)
[2019-06-15] MEDS: VANCOMYCIN INJ 1,250 MG in SODIUM CHLORIDE 0.9% 250 ML IV SCH (09:19)
[2019-06-15] MEDS: FUROSEMIDE 20 MG/2 ML VIAL IV SCH (20:39)
[2019-06-16] MEDS: AMPICILLIN/SULBACTAM 3,000 MG in SODIUM CHLORIDE 0.9% 100 ML IV SCH ×4 (00:29→18:20)
[2019-06-16] MEDS: SODIUM CHLORIDE 0.9% 1,000 ML IV SCH ×2 (00:30→06:19)
[2019-06-16] MEDS: FUROSEMIDE 20 MG/2 ML VIAL IV SCH ×2 (09:20→16:37)
[2019-06-16] MEDS: PANTOPRAZOLE 40 MG TABLET PO SCH (09:20)
[2019-06-16] MEDS: VANCOMYCIN INJ 1,250 MG in SODIUM CHLORIDE 0.9% 250 ML IV SCH (09:20)
[2019-06-16] MEDS: DOCUSATE SODIUM 100 MG CAPSULE PO SCH ×2 (09:20→21:01)
[2019-06-16] MEDS ORDERED: AMPICILLIN/SULBACTAM 3,000 MG in SODIUM CHLORIDE 0.9% 100 ML IV SCH (10:00)
[2019-06-16] MEDS: CHLORHEXIDINE 4% SOLN 118 ML BOTTLE TOP SCH (10:15)
[2019-06-16] MEDS: SODIUM HYPOCHLORITE 0.25% IRRIG 473 ML BOTTLE TOP SCH (10:15)
[2019-06-16] MEDS ORDERED: GENTAMICIN INJ 360 MG in SODIUM CHLORIDE 0.9% 100 ML IV SCH (12:00)
[2019-06-17] MEDS: AMPICILLIN/SULBACTAM 3,000 MG in SODIUM CHLORIDE 0.9% 100 ML IV SCH ×3 (00:20→14:12)
[2019-06-17] MEDS: VANCOMYCIN INJ 1,250 MG in SODIUM CHLORIDE 0.9% 250 ML IV SCH (09:56)
[2019-06-17] MEDS: DOCUSATE SODIUM 100 MG CAPSULE PO SCH (09:57)
[2019-06-17] MEDS: PANTOPRAZOLE 40 MG TABLET PO SCH (09:57)
[2019-06-17] MEDS: FUROSEMIDE 20 MG/2 ML VIAL IV SCH ×2 (09:57→17:42)
[2019-06-17] MEDS: CHLORHEXIDINE 4% SOLN 118 ML BOTTLE TOP SCH (09:58)
[2019-06-17] MEDS: SODIUM HYPOCHLORITE 0.25% IRRIG 473 ML BOTTLE TOP SCH (09:58)
[2019-06-17 15:37] VITALS: BP 141/79
== END 2019-06-17 17:35 | DRG 746 ==
LOC: EDUNIT# → EDBD → N.ED 16:15 → N.EDINP 16:15 → N.3E 16:15 → N.EDINP 18:41 → SUATTDRO 18:41 → N.ED 20:05 → SUATTDRO 21:59 → OBSVTOIN 21:59
PROVIDERS: ADMIT Internal Medicine; ATTEND Emergency Medicine

== ENCOUNTER 2019-06-26 02:05 | Inpatient (IN) ==
[2019-06-26 04:19] LABS: Basophils # 0.1 10*3/uL (0.0-0.2); Basophils % 0.4 % (0.0-0.8); Hematocrit 39.1 VOL% (35.7-47.0); Hemoglobin 13.2 GM/DL (12.0-16.0); Immature Granulocytes % 2.7 %; Lymphocytes # 0.8 10*3/uL (1.4-4.0); Lymphocytes % 3.5 % (21.3-54.2); Mean Corpuscular HGB Conc 33.8 GM/DL (32-36); Mean Corpuscular Volume 88.1 FL (87-102); Mean Platelet Volume 9.1 FL (9.6-12.0); Monocytes % 4.9 % (1.7-12.7); Neutrophils % 88.5 % (38.7-73.9); Platelet Count 344 T/CUMM (130-400); Red Blood Count 4.44 MC/CUMM (3.8-5.5); Red Cell Distribution Width 15.4 % (9.3-17.3); White Blood Count 22.2 T/CUMM (4-12)
[2019-06-26 04:24] LABS: Alanine Aminotransferase 23 U/L (13-56); Albumin 3.2 G/DL (3.4-5.0); Alkaline Phosphatase 84 U/L (45-117); Aspartate Amino Transferase 18 U/L (0-37); Blood Urea Nitrogen 36 MG/DL (7-18); Calcium 9.1 MG/DL (8.5-10.1); Osmolality,Calculated 258.2 MOS/KG (273-304); Total Protein 6.9 G/DL (6.4-8.3)
[2019-06-26 04:26] LABS: PT Patient Result 10.9 SECS (9.6-12.2)
[2019-06-26 04:27] LABS: Estimated Glom Filtration Rate 0 ML/MIN
[2019-06-26 04:28] LABS: Glucose 27 MG/DL (74-106)
[2019-06-26] MEDS ORDERED: DEXTROSE 50% 25 GM/50 ML SYRINGE IV ONE (04:28)
[2019-06-26] MEDS ORDERED: DEXTROSE 50% 25 GM/50 ML VIAL IV STA (04:38)
[2019-06-26 05:18] LABS: Apearance,Urine CLEAR (Clear); Bacteria,Urine Occasional /HPF (Few); Bilirubin,Urine Negative (Negative); Blood, Urine Negative (Negative); Glucose,Urine (UA) Negative (Negative); Ketones,Urine Negative (Negative); Mucus,Urine Occasional /LPF (Occasional); Nitrite,Urine Negative (Negative); Protein,Urine Negative; RBC,Urine 3 /HPF (0-4); Squamous Epithelial Cell,Urine Occasional /HPF (0-10); Urine Color Yellow (Yellow); Urine Specific Gravity 1.011 (1.001-1.035); Urine Urobilinogen < 2.0 EU/DL (0.2-1.0); WBC,Urine 1 /HPF (0-6)
[2019-06-26 05:20] LABS: Band Neutrophils 1 % (0-10); Lymphocytes 5 % (20-55); Platelet Estimate Normal; Segmented Neutrophils 90 % (50-85); Total Cells Counted 100
[2019-06-26 05:21] LABS: Anisocytosis Slight; Microcytosis Slight
[2019-06-26 05:21] LABS: Barbiturates Screen,Urine Negative (Negative); Benzodiazepines Screen,Urine Negative (Negative); Cannabinoid Screen,Urine Negative (Negative); Opiate Screen,Urine Negative (Negative); Phencyclidine Screen,Urine Negative (Negative)
[2019-06-26] MEDS ORDERED: guaiFENesin/DM ER 600-30 MG TABLET PO PRN (05:48)
[2019-06-26] MEDS ORDERED: NICOTINE 21 MG/24 HR PATCH TRANSDERM PRN (05:48)
[2019-06-26] MEDS ORDERED: diphenhydrAMINE CAP 25 MG CAPSULE PO PRN (05:48)
[2019-06-26] MEDS ORDERED: ONDANSETRON 4 MG/2 ML VIAL IV PRN (05:48)
[2019-06-26] MEDS ORDERED: ACETAMINOPHEN 325 MG TABLET PO PRN (05:48)
[2019-06-26] MEDS ORDERED: BISACODYL 5 MG TABLET PO PRN (05:48)
[2019-06-26] MEDS ORDERED: GLUCAGON 1 MG VIAL IM PRN (05:48)
[2019-06-26] MEDS ORDERED: MORPHINE 4 MG/1 ML VIAL IV PRN (05:48)
[2019-06-26] MEDS ORDERED: DEXTROSE 10% 250 ML BAG IV PRN (06:05)
[2019-06-26] MEDS ORDERED: SODIUM CHLORIDE 0.9% 1,000 ML IV STA (06:30)
[2019-06-26] MEDS ORDERED: LEVOFLOXACIN INJ 750 MG in PREMIX 1 EACH IV SCH (06:30)
[2019-06-26] MEDS: PIPERACILLIN/TAZOBACTAM 3,375 MG in SODIUM CHLORIDE 0.9% 100 ML IV SCH ×3 (07:13→21:38)
[2019-06-26] MEDS ORDERED: SULFAMETHOX/TRIMETHOPRIM 800-160 MG TABLET PO SCH (09:00)
[2019-06-26] MEDS: DEXTROSE 5% NACL 0.45% 1,000 ML IV SCH ×2 (10:40→16:02)
[2019-06-26] MEDS: LINEZOLID INJ 600 MG in PREMIX 1 EACH IV SCH ×2 (10:40→20:49)
[2019-06-26] MEDS: SODIUM HYPOCHLORITE 0.25% IRRIG 473 ML BOTTLE TOP SCH (11:00)
[2019-06-26] MEDS ORDERED: SODIUM CHLORIDE 0.9% 1,000 ML IV ONE ×2 (11:51→12:07)
[2019-06-27] MEDS: DEXTROSE 5% NACL 0.45% 1,000 ML IV SCH ×4 (00:57→21:59)
[2019-06-27 05:32] LABS: Basophils # 0.1 10*3/uL (0.0-0.2); Eosinophils # 0.2 10*3/uL (0.0-0.87); Eosinophils % 2.1 % (0.00-10.9); Hematocrit 34.6 VOL% (35.7-47.0); Hemoglobin 11.3 GM/DL (12.0-16.0); Immature Granulocytes % 3.9 %; Immature Granulocytes Absolute 0.43 #; Lymphocytes # 0.4 10*3/uL (1.4-4.0); Lymphocytes % 3.9 % (21.3-54.2); Mean Corpuscular HGB Conc 32.7 GM/DL (32-36); Mean Corpuscular Volume 90.8 FL (87-102); Monocytes % 5.6 % (1.7-12.7); Neutrophils % 83.5 % (38.7-73.9); Platelet Count 251 T/CUMM (130-400); Red Blood Count 3.81 MC/CUMM (3.8-5.5); Red Cell Distribution Width 15.8 % (9.3-17.3); White Blood Count 11.1 T/CUMM (4-12)
[2019-06-27 06:02] LABS: Eosinophils 3 % (0-10); Hypochromasia Slight; Lymphocytes 3 % (20-55); Ovalocytes Slight; Platelet Estimate Adequate; Segmented Neutrophils 91 % (50-85); Total Cells Counted 100
[2019-06-27 06:03] LABS: Microcytosis Slight
[2019-06-27 06:19] LABS: Albumin 2.3 G/DL (3.4-5.0); Bilirubin,Total 0.8 MG/DL (0.2-1.0); Calcium 8.2 MG/DL (8.5-10.1); Osmolality,Calculated 270.2 MOS/KG (273-304); Total Protein 5.1 G/DL (6.4-8.3)
[2019-06-27] MEDS: PIPERACILLIN/TAZOBACTAM 3,375 MG in SODIUM CHLORIDE 0.9% 100 ML IV SCH ×3 (06:37→21:39)
[2019-06-27] MEDS: LINEZOLID INJ 600 MG in PREMIX 1 EACH IV SCH ×3 (10:35→20:21)
[2019-06-27] MEDS: SODIUM HYPOCHLORITE 0.25% IRRIG 473 ML BOTTLE TOP SCH (10:35)
[2019-06-28 05:51] LABS: Basophils # 0.1 10*3/uL (0.0-0.2); Basophils % 0.8 % (0.0-0.8); Eosinophils # 0.3 10*3/uL (0.0-0.87); Eosinophils % 4.1 % (0.00-10.9); Hematocrit 34.2 VOL% (35.7-47.0); Hemoglobin 11.2 GM/DL (12.0-16.0); Immature Granulocytes % 3.2 %; Immature Granulocytes Absolute 0.27 #; Lymphocytes # 0.5 10*3/uL (1.4-4.0); Lymphocytes % 6.1 % (21.3-54.2); Mean Corpuscular HGB Conc 32.7 GM/DL (32-36); Mean Corpuscular Volume 91.2 FL (87-102); Monocytes % 8.8 % (1.7-12.7); Platelet Count 215 T/CUMM (130-400); Red Blood Count 3.75 MC/CUMM (3.8-5.5); Red Cell Distribution Width 15.9 % (9.3-17.3); White Blood Count 8.4 T/CUMM (4-12)
[2019-06-28] MEDS: PIPERACILLIN/TAZOBACTAM 3,375 MG in SODIUM CHLORIDE 0.9% 100 ML IV SCH ×3 (06:06→23:01)
[2019-06-28 06:17] LABS: Calcium 8.1 MG/DL (8.5-10.1); Osmolality,Calculated 269.2 MOS/KG (273-304)
[2019-06-28] MEDS: LINEZOLID INJ 600 MG in PREMIX 1 EACH IV SCH ×2 (09:05→20:02)
[2019-06-28] MEDS: SODIUM HYPOCHLORITE 0.25% IRRIG 473 ML BOTTLE TOP SCH (09:05)
[2019-06-28] MEDS: DEXTROSE 5% NACL 0.45% 1,000 ML IV SCH (09:05)
[2019-06-28] MEDS ORDERED: ENOXAPARIN 40 MG/0.4 ML SYRINGE SUBCUT SCH (11:00)
[2019-06-29] MEDS: PIPERACILLIN/TAZOBACTAM 3,375 MG in SODIUM CHLORIDE 0.9% 100 ML IV SCH (06:39)
[2019-06-29] MEDS: LINEZOLID INJ 600 MG in PREMIX 1 EACH IV SCH (08:44)
[2019-06-29] MEDS: SODIUM HYPOCHLORITE 0.25% IRRIG 473 ML BOTTLE TOP SCH (08:44)
[2019-06-29 08:46] VITALS: BP 151/81
== END 2019-06-29 10:47 | DRG 638 ==
LOC: EDBD → EDUNIT# → N.ED 02:05 → N.EDINP 02:05 → SUATTDRO 05:48 → N.5E 08:14 → SUATTDRO 06-27 08:12
PROVIDERS: ADMIT Internal Medicine Geriatric Medicine; ATTEND Internal Medicine Cardiovascular Disease